=== PATIENT | female | born 1935 | race Caucasian/White ===

== ENCOUNTER → 2017-02-22 | Outpatient (CLI) | payer OTHER ==
[2017-02-22 11:04] LABS: HEMATOCRIT 31.3 % (37-47); MEAN CELL VOLUME 98.7 fL (80-100); MEAN CORPUSCULAR HEMOGLOBIN 30.9 pg (25-34); MEAN CORPUSCULAR HGB CONC 31.3 g/dl (32-36); MEAN PLATELET VOLUME 8.9 fL (7.4-10.4); PLATELET COUNT 278 K/uL (130-400); RED BLOOD COUNT 3.17 M/uL (4.2-5.4); WHITE BLOOD COUNT 5.09 K/uL (4.8-10.8)
[2017-02-22 11:11] LABS: BLOOD UREA NITROGEN 19 mg/dl (7-18); BUN/CREATININE RATIO 25.4 (10-20); CARBON DIOXIDE 27 mmol/L (21-32); CHLORIDE 107 mmol/L (98-107); CREATININE 0.75 mg/dl (0.60-1.20); GLUCOSE 80 mg/dl (70-99); POTASSIUM 3.7 mmol/L (3.5-5.1); SODIUM 141 mmol/L (136-145)
== END | disposition home or self-care (01) ==
LOC: C.LABWYN 10:51
PROVIDERS: ATTEND Internal Medicine
DX: R05 Cough (principal); R50.9 Fever, unspecified; J02.9 Acute pharyngitis, unspecified; E03.9 Hypothyroidism, unspecified; N30.20 Other chronic cystitis without hematuria

== ENCOUNTER → 2017-03-10 | Outpatient (CLI) | payer OTHER ==
[2017-03-10 08:16] LABS: HEMATOCRIT 31.7 % (37-47); MEAN CELL VOLUME 95.8 fL (80-100); MEAN CORPUSCULAR HEMOGLOBIN 31.1 pg (25-34); MEAN CORPUSCULAR HGB CONC 32.5 g/dl (32-36); MEAN PLATELET VOLUME 8.8 fL (7.4-10.4); PLATELET COUNT 269 K/uL (130-400); RED BLOOD COUNT 3.31 M/uL (4.2-5.4); WHITE BLOOD COUNT 5.45 K/uL (4.8-10.8)
== END | disposition home or self-care (01) ==
LOC: C.LABWYN 07:42
PROVIDERS: ATTEND Internal Medicine
DX: I10 Essential (primary) hypertension (principal)

== ENCOUNTER → 2017-03-29 | Outpatient (CLI) | payer OTHER | END | disposition home or self-care (01) | LOC: C.LABWYN 10:54 | PROVIDERS: ATTEND Internal Medicine | DX: N39.0 Urinary tract infection, site not specified (principal) ==

== ENCOUNTER → 2017-03-29 | Outpatient (CLI) | payer OTHER ==
[2017-03-29 08:31] LABS: BLOOD UREA NITROGEN 19 mg/dl (7-18); CALCIUM 8.9 mg/dl (8.5-10.1); CARBON DIOXIDE 29 mmol/L (21-32); CHLORIDE 107 mmol/L (98-107); CREATININE 0.66 mg/dl (0.60-1.20); GLUCOSE 85 mg/dl (70-99); SODIUM 141 mmol/L (136-145)
== END | disposition home or self-care (01) ==
LOC: C.LABWYN 08:08
PROVIDERS: ATTEND Internal Medicine
DX: E03.9 Hypothyroidism, unspecified (principal); N39.0 Urinary tract infection, site not specified

== ENCOUNTER → 2017-03-30 | Outpatient (CLI) | payer OTHER | END | disposition home or self-care (01) | LOC: C.LABWYN 16:43 | PROVIDERS: ATTEND Internal Medicine | DX: N39.0 Urinary tract infection, site not specified (principal) ==

== ENCOUNTER 2017-10-04 09:19 | Inpatient (IN) | payer OTHER ==
[2017-10-04] VITALS (7 sets, daily range): BP systolic 151–164; BP diastolic 65–68; PULSE 53–61; TEMP 34.7–36.4; O2SAT 98–99; BMI 23.8
[~2017-10-04] VITALS: Ht 167.6 cm; Wt 65.4 kg
[2017-10-04] MEDS ORDERED: SODIUM CHLORIDE 0.9% 1000ML 1,000 ML IV STA (09:32)
[2017-10-04] MEDS ORDERED: PRLSR20 PO (09:33)
[2017-10-04] MEDS ORDERED: SACC250C PO (09:33)
[2017-10-04] MEDS ORDERED: LEVO88TA PO (09:33)
[2017-10-04] MEDS ORDERED: DONE1TAB25 PO (09:33)
[2017-10-04] MEDS ORDERED: FERR1TAB62 PO (09:33)
[2017-10-04] MEDS ORDERED: TRAM-10 PO (09:33)
[2017-10-04] MEDS ORDERED: CHOL20009 PO (09:33)
[2017-10-04] MEDS ORDERED: RISP0.5T10 PO (09:33)
[2017-10-04] MEDS ORDERED: LSX20 PO (09:33)
[2017-10-04] MEDS ORDERED: MAGN400T6 PO (09:33)
--- NOTE | 2017-10-04 10:06 | EMERGENCY ROOM VISIT NOTE ---
History First contact with patient: 09:30 Chief Complaint: RECTAL BLEEDING Stated Complaint: BLEEDING (NON-TRAUMA) Nursing Triage Summary: pt here via bls from [facility] with rectal bleeding. pt states has had black stools since 0400. pt states some abd pains. pt has hx of colon cancer upon arrival pt has excoriated open area at top of buttocks and dime sized wound noted History of Present Illness The patient is a 82 year old female who presents to the Emergency Room with complaints of dark stools since this AM. Sent from [facility]. Pt states that she takes iron chronically and also that she has h/o hemorrhoids for which she has cream put on for her by staff from time to time. She is surprised that she was sent here, and isn't exactly sure why. She says her hemorrhoids are bothering her currently. She denies being on blood thinners of any kind. Denies abdominal pain, vomiting or nausea, says she is dizzy but that that is not new for her. [facility] Denies difficulty breathing or chest pain. Says her legs are swollen, but that this is also not new for her. Has incontinence. Spoke on the phone with Trini Carlin at [facility] [place], and she states the reason pt was brought in was because of confusion, dark stools, and urine was dark. Staff said there was a very strong odor around the patient "like something was " that is not normal for her. Visual hallucinations reported over the weekend. Pt normally resides in [place] but [place] here. brought her to [facility]. She has not taken her iron for a few days. Review of Systems ROS See HPI for pertinent positives and negatives. Past Medical/Surgical History Medical Problems: (1) Altered mental status Social History Smoking Status: Former Smoker Marital Status: Housing Status: [facility] Current/Historical Medications Scheduled Cholecalciferol (Vitamin D), 2,000 UNITS PO DAILY Donepezil Hydrochloride (Donepezil Hcl), 5 MG PO DAILY Ferrous Sulfate (Ferrous Sulfate), 325 MG PO DAILY Furosemide (Furosemide), 20 MG PO DAILY Levothyroxine Sodium (Synthroid), 88 MCG PO DAILY Magnesium Oxide (Mag-Ox), 800 MG PO BID Omeprazole (Prilosec), 20 MG PO DAILY Risperidone (Risperdal), 0.5 MG PO DAILY Saccharomyces Boulardii (Florastor), 250 MG PO BID Scheduled PRN Tramadol (Ultram), 50 MG PO Q6 PRN for Pain Physical Exam Vital Signs Date Time Temp Pulse Resp B/P (MAP) Pulse Ox O2 Delivery O2 Flow Rate FiO2 10/04/17 13:09 53 16 150/67 99 Room Air 10/04/17 12:32 55 16 163/66 100 Room Air 10/04/17 11:43 66 16 145/86 99 Room Air 10/04/17 11:17 55 10/04/17 10:18 61 16 144/76 96 Room Air 10/04/17 10:18 97 Room Air 10/04/17 09:31 36.5 64 16 138/52 98 Room Air Physical Exam GENERAL: Awake, oriented to self and place, in no distress HENT: Normocephalic, atraumatic. EYES: Normal conjunctiva. Sclera non-icteric. NECK: Supple. FROM. No JVD. RESPIRATORY: Clear to auscultation. CARDIAC: Regular rate, normal rhythm. Extremities warm and well perfused. Pulses equal. ABDOMEN: Soft, non-distended. No tenderness to palpation. No rebound or guarding. No masses. LOWER EXTREMITIES: Calves are equal size bilaterally and non-tender. 2+ edema. No discoloration. SACRAL: excoriated open area, dime sized wound noted proximal to intergluteal cleft with pinoint bleeding. NEURO: No motor deficits noted. Symmetrical weakness in all four extremities. Sensation in tact in all 4 ext. CN II-XII grossly in tact. PSYCH: Flat affect. Slow speech. SKIN: No rash or jaundice noted. Medical Decision & Procedures Laboratory Results 10/04/17 10:01 Red Blood Count 4.02, Mean Corpuscular Volume 98.0, Mean Corpuscular Hemoglobin 32.1, Mean Corpuscular Hemoglobin Concent 32.7, Mean Platelet Volume 8.7, Neutrophils (%) (Auto) 75.3, Lymphocytes (%) (Auto) 13.7, Monocytes (%) (Auto) 9.8, Eosinophils (%) (Auto) 0.6, Basophils (%) (Auto) 0.2, Neutrophils # (Auto) 3.90, Lymphocytes # (Auto) 0.71, Monocytes # (Auto) 0.51, Eosinophils # (Auto) 0.03, Basophils # (Auto) 0.01 10/04/17 10:01 Test 10/04/17 10:01 10/04/17 10:40 White Blood Count 5.18 K/uL (4.8-10.8) Red Blood Count 4.02 M/uL (4.2-5.4) Hemoglobin 12.9 g/dL (12.0-16.0) Hematocrit 39.4 % (37-47) Mean Corpuscular Volume 98.0 fL (80-100) Mean Corpuscular Hemoglobin 32.1 pg (25-34) Mean Corpuscular Hemoglobin Concent 32.7 g/dl (32-36) Platelet Count 250 K/uL (130-400) Mean Platelet Volume 8.7 fL (7.4-10.4) Neutrophils (%) (Auto) 75.3 % Lymphocytes (%) (Auto) 13.7 % Monocytes (%) (Auto) 9.8 % Eosinophils (%) (Auto) 0.6 % Basophils (%) (Auto) 0.2 % Neutrophils # (Auto) 3.90 K/uL (1.4-6.5) Lymphocytes # (Auto) 0.71 K/uL (1.2-3.4) Monocytes # (Auto) 0.51 K/uL (0.11-0.59) Eosinophils # (Auto) 0.03 K/uL (0-0.5) Basophils # (Auto) 0.01 K/uL (0-0.2) RDW Standard Deviation 50.5 fL (36.4-46.3) RDW Coefficient of Variation 14.1 % (11.5-14.5) Immature Granulocyte % (Auto) 0.4 % Immature Granulocyte # (Auto) 0.02 K/uL (0.00-0.02) Red Blood Cell Morphology Unremarkable Prothrombin Time 9.9 SECONDS (9.0-12.0) Prothromb Time International Ratio 0.9 (0.9-1.1) Activated Partial Thromboplast Time 25.9 SECONDS (21.0-31.0) Partial Thromboplastin Ratio 1.0 Anion Gap 5.0 mmol/L (3-11) Est Creatinine Clear Calc Drug Dose 52.7 ml/min Estimated GFR () 83.3 Estimated GFR (Non- 71.9 BUN/Creatinine Ratio 21.1 (10-20) Calcium Level 9.5 mg/dl (8.5-10.1) Total Bilirubin 0.7 mg/dl (0.2-1) Direct Bilirubin 0.1 mg/dl (0-0.2) Aspartate Amino Transf (AST/SGOT) 12 U/L (15-37) Alanine Aminotransferase (ALT/SGPT) 19 U/L (12-78) Alkaline Phosphatase 83 U/L (45-117) Total Protein 6.7 gm/dl (6.4-8.2) Albumin 3.1 gm/dl (3.4-5.0) Lipase 85 U/L (73-393) Urine Color YELLOW Urine Appearance TURBID (CLEAR) Urine pH 7.0 (4.5-7.5) Urine Specific [place] 1.017 (1.000-1.030) Urine Protein 2+ (NEG) Urine Glucose (UA) NEG (NEG) Urine Ketones NEG (NEG) Urine Occult Blood 1+ (NEG) Urine Nitrite POS (NEG) Urine Bilirubin NEG (NEG) Urine Urobilinogen NEG (NEG) Urine Leukocyte Esterase LARGE (NEG) Urine WBC (Auto) >30 /hpf (0-5) Urine RBC (Auto) 0-4 /hpf (0-4) Urine Hyaline Casts (Auto) 1-5 /lpf (0-5) Urine Epithelial Cells (Auto) 10-20 /lpf (0-5) Urine Bacteria (Auto) 4+ (NEG) Urine Yeast (Auto) (NONE PRSENT) Medications Administered Medications (Trade) Dose Ordered Sig/Nora Route Start Time Stop Time Status Last Admin Dose Admin Sodium Chloride 1,000 ml @ 999 mls/hr Q1H1M STAT IV 10/04/17 09:32 10/04/17 10:32 DC 10/04/17 10:30 999 MLS/HR Ceftriaxone Sodium (Rocephin Inj) 1 gm NOW STAT IV 10/04/17 11:21 10/04/17 11:24 DC 10/04/17 11:53 1 GM Procedure CHEST ONE VIEW PORTABLE CLINICAL HISTORY: EVALUATE GI BLEED COMPARISON STUDY: No previous studies for comparison. FINDINGS: Lung volumes are normal. There is no consolidation to suggest pneumonia. Pulmonary vascularity is normal. Linear left basilar opacity is suggestive of atelectasis. There is no evidence for pulmonary edema. There is mild rightward curvature of the lower thoracic spine. Cardiomediastinal silhouette is unremarkable. IMPRESSION: No acute cardiopulmonary findings. Electronically signed by: Josef Olivier M.D. 10/04/2017 10:22 AM Dictated Date/Time: 10/04/2017 10:22 AM ED Course 0930 reviewed records. Discussed with Trini Carlin at [facility] to discuss case. 0932 ordered labs, UA, CXR, hemoccult. 1039 Per nurse, hemocult is negative. CXR, labs reviewed, unremarkable. Awaiting urine collection. 1115 UA results + for large leuk est + nitrites. Medical Decision The patient is a 82 year old female who presents to the Emergency Room with complaints of dark stools since this AM. Sent from [facility]. Pt states that she takes iron chronically and also that she has h/o hemorrhoids for which she has cream put on for her by staff from time to time. She is surprised that she was sent here, and isn't exactly sure why. She says her hemorrhoids are bothering her currently. She denies being on blood thinners of any kind. Denies abdominal pain, vomiting or nausea, says she is dizzy but that that is not new for her. [facility]. Denies difficulty breathing or chest pain. Says her legs are swollen, but that this is also not new for her. Has incontinence. Spoke on the phone with Trini Carlin at [facility] [place], and she states the reason pt was brought in was because of confusion, dark stools, and urine was dark. Staff said there was a very strong odor around the patient "like something was " that is not normal for her. Visual hallucinations reported over the weekend. Pt normally resides in [place] but [place] here. brought her to [facility]. She has not taken her iron for a few days. Diff dx: UTI, GI bleed, diarrhea, dehydration, confusion CXR, CBC, CMP unremarkable and hemoccult negative. UA shows + large leuk est. Pt is still confused and case discussed with hospitalist service and decision made to admit due to active infection, UTI and altered mentation. Impression Primary Impression: Altered mental status Additional Impressions: UTI (urinary tract infection) Wound of sacral region Departure Information Dispostion Being Evaluated By Hospitalist Condition FAIR Referrals [facility] Y[facility]AN[facility] RIV[facility] (PCP) Patient Instructions My [facility] Resident Tracking Resident Involvement: Resident Care Provided Care Provided: Adult Hospital Medicine Problem Qualifiers
[2017-10-04 10:19] LABS: BASO % 0.2 %; BASO ABS # 0.01 K/uL (0-0.2); EOS % 0.6 %; EOS ABS # 0.03 K/uL (0-0.5); HEMATOCRIT 39.4 % (37-47); HEMOGLOBIN 12.9 g/dL (12.0-16.0); IG# 0.02 K/uL (0.00-0.02); LYMPH % 13.7 %; LYMPH ABS # 0.71 K/uL (1.2-3.4); MEAN CORPUSCULAR HEMOGLOBIN 32.1 pg (25-34); MEAN CORPUSCULAR HGB CONC 32.7 g/dl (32-36); MEAN PLATELET VOLUME 8.7 fL (7.4-10.4); MONO % 9.8 %; MONO ABS # 0.51 K/uL (0.11-0.59); NEUT % 75.3 %; PLATELET COUNT 250 K/uL (130-400); RED CELL DISTRIBUTION WIDTH CV 14.1 % (11.5-14.5); RED CELL DISTRIBUTION WIDTH SD 50.5 fL (36.4-46.3); WHITE BLOOD COUNT 5.18 K/uL (4.8-10.8)
--- NOTE | 2017-10-04 10:24 | DIAGNOSTIC IMAGING REPORT ---
CHEST ONE VIEW PORTABLE CLINICAL HISTORY: EVALUATE GI BLEED COMPARISON STUDY: No previous studies for comparison. FINDINGS: Lung volumes are normal. There is no consolidation to suggest pneumonia. Pulmonary vascularity is normal. Linear left basilar opacity is suggestive of atelectasis. There is no evidence for pulmonary edema. There is mild rightward curvature of the lower thoracic spine. Cardiomediastinal silhouette is unremarkable. IMPRESSION: No acute cardiopulmonary findings. Electronically signed by: Josef Olivier M.D. 10/04/2017 10:22 AM Dictated Date/Time: 10/04/2017 10:22 AM
[2017-10-04 10:28] LABS: INR 0.9 (0.9-1.1); PTT PATIENT 25.9 SECONDS (21.0-31.0)
[2017-10-04 10:42] LABS: ALBUMIN 3.1 gm/dl (3.4-5.0); CALCIUM 9.5 mg/dl (8.5-10.1); CREATININE 0.77 mg/dl (0.60-1.20); POTASSIUM 3.9 mmol/L (3.5-5.1)
[2017-10-04 10:45] LABS: TOTAL PROTEIN 6.7 gm/dl (6.4-8.2)
[2017-10-04] MEDS ORDERED: CEFTRIAXONE SOD INJ 1 GM ADDVIAL IV STA (11:21)
--- NOTE | 2017-10-04 11:33 | DIAGNOSTIC IMAGING REPORT ---
CT SCAN OF THE BRAIN WITHOUT IV CONTRAST CLINICAL HISTORY: Change in mental status. COMPARISON STUDY: No priors. TECHNIQUE: Unenhanced axial CT scan of the brain is performed from the vertex to the skull base. A dose lowering technique was utilized adhering to the principles of ALARA. CT DOSE: 788.63 mGycm FINDINGS: Brain parenchyma: There are age-related involutional changes noting minimal subcortical and periventricular microangiopathic change. There is no hemorrhage, mass effect, or evidence of acute territorial ischemia by CT criteria. Slightly asymmetric atrophy is suggested in the right cerebellar hemisphere. [place]-white matter is preserved. No extra-axial fluid collection is seen. Ventricles, sulci, cisterns: Prominent secondary to involutional change. Intracranial vasculature: There is atherosclerotic calcification of the cavernous carotid and vertebral arteries. Calvarium: Unremarkable. Sinuses and mastoids: The visualized paranasal sinuses are clear. The mastoid air cells are well pneumatized. Orbits: The bony orbits are grossly intact. IMPRESSION: There is no hemorrhage, mass effect, or evidence of acute territorial ischemia by CT criteria. Electronically signed by: Venkata Solorzano M.D. 10/04/2017 11:31 AM Dictated Date/Time: 10/04/2017 11:28 AM
[2017-10-04] MEDS ORDERED: ACETAMINOPHEN 325 MG TAB PO PRN (13:30)
[2017-10-04] MEDS ORDERED: ONDANSETRON INJ 2 MG/ML 2 ML VIAL IV PRN (13:30)
[2017-10-04] MEDS ORDERED: NYSTATIN POWDER 15GM BTL EXT PRN (13:30)
--- NOTE | 2017-10-04 13:35 | History and Physical ---
History & Physical Date & Time of Service: Oct 04, 2017 at 13:34 Chief Complaint: Bleeding (Non-Trauma) Primary Care Physician: Elisabet Vigil History of Present Illness Source: patient, hospital records, jail Patient is an 82 yr female with PMH of Hypothyroidism, GERD, Vit D deficiency, H /O colon cancer, mild cognitive impairment, vaginitis, protein Calorie malnutrition, failure to thrive as per records presents from [facility] with history of altered mental status and melena as per ER physician and Staff. Patient is a very poor historian and no family is available at bedside. Patient was unsure as to why she was brought to the hospital. Patient is on chronic Iron therapy and FOBT was negative (done in ED). She was also known to have h/o hemorrhoids. Patient reports productive cough since 3 days and non radiating pressure like sensation at suprapubic region associated with burning micturition. Also reports chronic leg swelling and dizziness which is unchanged. Denies any chest pain, SOB, diarrhea, fever, chills, fall, head trauma, LOC, headache. No other relevant history could be obtained. Patient was also noted to have visual hallucinations over the weekend at [facility] and takes Risperdal at home. Past Medical/Surgical History Medical Problems: (1) Altered mental status PMH of Hypothyroidism, GERD, Vit D deficiency, H/O colon cancer, mild cognitive impairment, vaginitis, protein Calorie malnutrition, failure to thrive PSH: could not be obtained Family History Could not be obtained as patient has altered mental status Social History Smoking Status: Former Smoker Alcohol Use: none Marital Status: Allergies Coded Allergies: No Known Allergies (Unverified , 10/04/17) Home Medications Scheduled Cholecalciferol (Vitamin D), 2,000 UNITS PO DAILY Donepezil Hydrochloride (Donepezil Hcl), 5 MG PO DAILY Ferrous Sulfate (Ferrous Sulfate), 325 MG PO DAILY Furosemide (Furosemide), 20 MG PO DAILY Levothyroxine Sodium (Synthroid), 88 MCG PO DAILY Magnesium Oxide (Mag-Ox), 800 MG PO BID Omeprazole (Prilosec), 20 MG PO DAILY Risperidone (Risperdal), 0.5 MG PO DAILY Saccharomyces Boulardii (Florastor), 250 MG PO BID Scheduled PRN Tramadol (Ultram), 50 MG PO Q6 PRN for Pain Review of Systems See HPI for pertinent positives & negatives. A total of 10 systems reviewed and were otherwise negative. Physical Exam Vital Signs Date Time Temp Pulse Resp B/P (MAP) Pulse Ox O2 Delivery O2 Flow Rate FiO2 10/04/17 13:09 53 16 150/67 99 Room Air 10/04/17 12:32 55 16 163/66 100 Room Air 10/04/17 11:43 66 16 145/86 99 Room Air 10/04/17 11:17 55 10/04/17 10:18 61 16 144/76 96 Room Air 10/04/17 10:18 97 Room Air 10/04/17 09:31 36.5 64 16 138/52 98 Room Air General Appearance: no apparent distress, + thin, + pertinent finding (Frail) Head: normocephalic, atraumatic Eyes: normal inspection, PERRL, EOMI, sclerae normal ENT: normal ENT inspection, hearing grossly normal Neck: supple, trachea midline Respiratory/Chest: chest non-tender, lungs clear, no respiratory distress, no accessory muscle use, + decreased breath sounds Cardiovascular: regular rate, rhythm, no murmur, + bradycardia, + pertinent finding (1+ b/l edema) Abdomen/GI: normal bowel sounds, non tender, soft Genitourinary - Female: + pertinent finding (+Vaginitis) Back: normal inspection, + pertinent finding (Sacral wound) Extremities/Musculoskelatal: normal inspection, + pedal edema 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, no motor/sensory deficits, alert, + pertinent finding (Grossly no focal deficits) Skin: normal color, + pertinent finding (Sacral wound) Diagnostics Laboratory Results Results Past 24 Hours Test 10/04/17 10:01 10/04/17 10:40 Range/Units White Blood Count 5.18 4.8-10.8 K/uL Red Blood Count 4.02 4.2-5.4 M/uL Hemoglobin 12.9 12.0-16.0 g/dL Hematocrit 39.4 37-47 % Mean Corpuscular Volume 98.0 80-100 fL Mean Corpuscular Hemoglobin 32.1 25-34 pg Mean Corpuscular Hemoglobin Concent 32.7 32-36 g/dl Platelet Count 250 130-400 K/uL Mean Platelet Volume 8.7 7.4-10.4 fL Neutrophils (%) (Auto) 75.3 % Lymphocytes (%) (Auto) 13.7 % Monocytes (%) (Auto) 9.8 % Eosinophils (%) (Auto) 0.6 % Basophils (%) (Auto) 0.2 % Neutrophils # (Auto) 3.90 1.4-6.5 K/uL Lymphocytes # (Auto) 0.71 1.2-3.4 K/uL Monocytes # (Auto) 0.51 0.11-0.59 K/uL Eosinophils # (Auto) 0.03 0-0.5 K/uL Basophils # (Auto) 0.01 0-0.2 K/uL RDW Standard Deviation 50.5 36.4-46.3 fL RDW Coefficient of Variation 14.1 11.5-14.5 % Immature Granulocyte % (Auto) 0.4 % Immature Granulocyte # (Auto) 0.02 0.00-0.02 K/uL Red Blood Cell Morphology Unremarkable Prothrombin Time 9.9 9.0-12.0 SECONDS Prothromb Time International Ratio 0.9 0.9-1.1 Activated Partial Thromboplast Time 25.9 21.0-31.0 SECONDS Partial Thromboplastin Ratio 1.0 Sodium Level 140 136-145 mmol/L Potassium Level 3.9 3.5-5.1 mmol/L Chloride Level 101 98-107 mmol/L Carbon Dioxide Level 34 21-32 mmol/L Anion Gap 5.0 3-11 mmol/L Blood Urea Nitrogen 16 7-18 mg/dl Creatinine 0.77 0.60-1.20 mg/dl Est Creatinine Clear Calc Drug Dose 52.7 ml/min Estimated GFR () 83.3 Estimated GFR (Non- 71.9 BUN/Creatinine Ratio 21.1 10-20 Random Glucose 87 70-99 mg/dl Calcium Level 9.5 8.5-10.1 mg/dl Total Bilirubin 0.7 0.2-1 mg/dl Direct Bilirubin 0.1 0-0.2 mg/dl Aspartate Amino Transf (AST/SGOT) 12 15-37 U/L Alanine Aminotransferase (ALT/SGPT) 19 12-78 U/L Alkaline Phosphatase 83 45-117 U/L Total Protein 6.7 6.4-8.2 gm/dl Albumin 3.1 3.4-5.0 gm/dl Lipase 85 73-393 U/L Urine Color YELLOW Urine Appearance TURBID CLEAR Urine pH 7.0 4.5-7.5 Urine Specific [place] 1.017 1.000-1.030 Urine Protein 2+ NEG Urine Glucose (UA) NEG NEG Urine Ketones NEG NEG Urine Occult Blood 1+ NEG Urine Nitrite POS NEG Urine Bilirubin NEG NEG Urine Urobilinogen NEG NEG Urine Leukocyte Esterase LARGE NEG Urine WBC (Auto) >30 0-5 /hpf Urine RBC (Auto) 0-4 0-4 /hpf Urine Hyaline Casts (Auto) 1-5 0-5 /lpf Urine Epithelial Cells (Auto) 10-20 0-5 /lpf Urine Bacteria (Auto) 4+ NEG Urine Yeast (Auto) NONE PRSENT Microbiology Results 10/04/17 Urine Culture, Received Pending Diagnostic Radiology CT head: There is no hemorrhage, mass effect, or evidence of acute territorial ischemia by CT criteria. CXR: No acute cardiopulmonary findings. EKG EKG: Sinus Bradycardia Impression Assessment and Plan Altered Mental Status:In setting of H/O Mild Cognitive Impairment Likely Metabolic Encephalopathy secondary to UTI CT head: no acute process Neuro checks UTI: H/O incontinence Start IV Ceftriaxone Urine culture No signs of sepsis IV fluids H/O Melena: In setting of chronic Iron therapy and H/O hemorrhoids Hb at baseline No active bleeding FOBT negative Monitor HB Transfuse PRBCs as need and consider GI if necessary Sinus Bradycardia: Not on any AV blocking agents monitor Hypothyroidism: check TSH, Free T4 continue levothyroxine GERD: continue PPI Vit D deficiency: continue supplements Chronic anemia: Likely Multifactorial: Iron deficiency, Anemia of chronic disease H/O colon cancer as per records Decubitus Ulcer: Wound care consulted H/O mild cognitive impairment Anxiety: Continue Risperdal H/O Protein Calorie malnutrition failure to thrive: BMI: 23.9 Chemical Lab Supervisor consulted DVT Px: Lovenox SQ Code Status: Full Code for now May need to readdress code status when family available Resuscitation Status VTE Prophylaxis Will order VTE Prophylaxis: Yes
--- NOTE | 2017-10-04 15:12 | EMERGENCY ROOM VISIT NOTE ---
History Report prepared by Rosie: Jeanne Pop Under the Supervision of: Dr. Guilherme Young D.O. First contact with patient: 09:30 Chief Complaint: RECTAL BLEEDING Stated Complaint: BLEEDING (NON-TRAUMA) Nursing Triage Summary: pt here via bls from [facility] with rectal bleeding. pt states has had black stools since 0400. pt states some abd pains. pt has hx of colon cancer upon arrival pt has excoriated open area at top of buttocks and dime sized wound noted History of Present Illness The patient is a 82 year old female who presents to the Emergency Room with complaints of rectal bleeding beginning this morning at 4 am. The patient comes from [facility]. The patient reports abdominal pain which is chronic for her. The patient does not take any blood thinners. Per nursing staff , the patient was sent into the ED for confusion as well as rectal bleeding. The patient is on iron. Per , the patient has been passing dark stools. Per , at baseline, the patient is not always aware of the year. He reports he has not seen the patient for 4 days. The patient and her recently traveled to [place] from [place]. The patient has a history of hemorrhoids. History is limited secondary to the patient's AMS. Source of History: patient History Limited By: AMS Onset: 4 am Position: other (rectal) Quality: other (bleeding) Timing: constant Associated Symptoms: + abdominal pain Review of Systems ROS limited secondary to AMS. Past Medical & Surgical Medical Problems: (1) Altered mental status Family History Patient reports no known family medical history. Social History Smoking Status: Former Smoker Alcohol Use: none Drug Use: none Marital Status: Housing Status: penitentiary Occupation Status: retired Current/Historical Medications Scheduled Cholecalciferol (Vitamin D), 2,000 UNITS PO DAILY Donepezil Hydrochloride (Donepezil Hcl), 5 MG PO DAILY Ferrous Sulfate (Ferrous Sulfate), 325 MG PO DAILY Furosemide (Furosemide), 20 MG PO DAILY Levothyroxine Sodium (Synthroid), 88 MCG PO DAILY Magnesium Oxide (Mag-Ox), 800 MG PO BID Omeprazole (Prilosec), 20 MG PO DAILY Risperidone (Risperdal), 0.5 MG PO DAILY Saccharomyces Boulardii (Florastor), 250 MG PO BID Scheduled PRN Tramadol (Ultram), 50 MG PO Q6 PRN for Pain Allergies Coded Allergies: No Known Allergies (Unverified , 10/04/17) Physical Exam Vital Signs Date Time Temp Pulse Resp B/P (MAP) Pulse Ox O2 Delivery O2 Flow Rate FiO2 10/04/17 14:06 55 16 160/70 100 Room Air 10/04/17 13:30 99 Room Air 10/04/17 13:09 53 16 150/67 99 Room Air 10/04/17 12:32 55 16 163/66 100 Room Air 10/04/17 11:43 66 16 145/86 99 Room Air 10/04/17 11:17 55 10/04/17 10:18 61 16 144/76 96 Room Air 10/04/17 10:18 97 Room Air 10/04/17 09:31 36.5 64 16 138/52 98 Room Air Physical Exam GENERAL: Sitting up in bed, alert, disheveled and confused appearing, well nourished, no distress, non-toxic EYE EXAM: normal conjunctiva. OROPHARYNX: no exudate, no erythema, lips, buccal mucosa, and tongue normal and mucous membranes are moist NECK: supple, no nuchal rigidity, no adenopathy, non-tender LUNGS: Clear to auscultation. Normal chest wall mechanics HEART: no murmurs, S1 normal and S2 normal ABDOMEN: abdomen soft, non-tender, normo-active bowel sounds, no masses, no rebound or guarding. BACK: Back is symmetrical on inspection and there is no deformity, no midline tenderness, no CVA tenderness. SKIN: no rashes and no bruising UPPER EXTREMITIES: upper extremities are grossly normal. LOWER EXTREMITIES: No pitting edema. NEURO EXAM: Awake and alert, oriented to name but not oriented to place or time , no focal deficits. RECTAL: Heme negative stool. Small ulcer at base of coccyx with small amount of bleeding on palpation. Medical Decision & Procedures ER Provider Diagnostic Interpretation: Radiology results as stated below per my review and the radiologist's interpretation: CT SCAN OF THE BRAIN WITHOUT IV CONTRAST FINDINGS: Brain parenchyma: There are age-related involutional changes noting minimal subcortical and periventricular microangiopathic change. There is no hemorrhage, mass effect, or evidence of acute territorial ischemia by CT criteria. Slightly asymmetric atrophy is suggested in the right cerebellar hemisphere. Norton-white matter is preserved. No extra-axial fluid collection is seen. Ventricles, sulci, cisterns: Prominent secondary to involutional change. Intracranial vasculature: There is atherosclerotic calcification of the cavernous carotid and vertebral arteries. Calvarium: Unremarkable. Sinuses and mastoids: The visualized paranasal sinuses are clear. The mastoid air cells are well pneumatized. Orbits: The bony orbits are grossly intact. IMPRESSION: There is no hemorrhage, mass effect, or evidence of acute territorial ischemia by CT criteria. Electronically signed by: Venkata Solorzano M.D. CHEST ONE VIEW PORTABLE FINDINGS: Lung volumes are normal. There is no consolidation to suggest pneumonia. Pulmonary vascularity is normal. Linear left basilar opacity is suggestive of atelectasis. There is no evidence for pulmonary edema. There is mild rightward curvature of the lower thoracic spine. Cardiomediastinal silhouette is unremarkable. IMPRESSION: No acute cardiopulmonary findings. Electronically signed by: Josef Olivier M.D. Laboratory Results 10/04/17 10:01 Red Blood Count 4.02, Mean Corpuscular Volume 98.0, Mean Corpuscular Hemoglobin 32.1, Mean Corpuscular Hemoglobin Concent 32.7, Mean Platelet Volume 8.7, Neutrophils (%) (Auto) 75.3, Lymphocytes (%) (Auto) 13.7, Monocytes (%) (Auto) 9.8, Eosinophils (%) (Auto) 0.6, Basophils (%) (Auto) 0.2, Neutrophils # (Auto) 3.90, Lymphocytes # (Auto) 0.71, Monocytes # (Auto) 0.51, Eosinophils # (Auto) 0.03, Basophils # (Auto) 0.01 10/04/17 10:01 Test 10/04/17 10:01 10/04/17 10:40 White Blood Count 5.18 K/uL (4.8-10.8) Red Blood Count 4.02 M/uL (4.2-5.4) Hemoglobin 12.9 g/dL (12.0-16.0) Hematocrit 39.4 % (37-47) Mean Corpuscular Volume 98.0 fL (80-100) Mean Corpuscular Hemoglobin 32.1 pg (25-34) Mean Corpuscular Hemoglobin Concent 32.7 g/dl (32-36) Platelet Count 250 K/uL (130-400) Mean Platelet Volume 8.7 fL (7.4-10.4) Neutrophils (%) (Auto) 75.3 % Lymphocytes (%) (Auto) 13.7 % Monocytes (%) (Auto) 9.8 % Eosinophils (%) (Auto) 0.6 % Basophils (%) (Auto) 0.2 % Neutrophils # (Auto) 3.90 K/uL (1.4-6.5) Lymphocytes # (Auto) 0.71 K/uL (1.2-3.4) Monocytes # (Auto) 0.51 K/uL (0.11-0.59) Eosinophils # (Auto) 0.03 K/uL (0-0.5) Basophils # (Auto) 0.01 K/uL (0-0.2) RDW Standard Deviation 50.5 fL (36.4-46.3) RDW Coefficient of Variation 14.1 % (11.5-14.5) Immature Granulocyte % (Auto) 0.4 % Immature Granulocyte # (Auto) 0.02 K/uL (0.00-0.02) Red Blood Cell Morphology Unremarkable Prothrombin Time 9.9 SECONDS (9.0-12.0) Prothromb Time International Ratio 0.9 (0.9-1.1) Activated Partial Thromboplast Time 25.9 SECONDS (21.0-31.0) Partial Thromboplastin Ratio 1.0 Anion Gap 5.0 mmol/L (3-11) Est Creatinine Clear Calc Drug Dose 52.7 ml/min Estimated GFR () 83.3 Estimated GFR (Non- 71.9 BUN/Creatinine Ratio 21.1 (10-20) Calcium Level 9.5 mg/dl (8.5-10.1) Total Bilirubin 0.7 mg/dl (0.2-1) Direct Bilirubin 0.1 mg/dl (0-0.2) Aspartate Amino Transf (AST/SGOT) 12 U/L (15-37) Alanine Aminotransferase (ALT/SGPT) 19 U/L (12-78) Alkaline Phosphatase 83 U/L (45-117) Total Protein 6.7 gm/dl (6.4-8.2) Albumin 3.1 gm/dl (3.4-5.0) Lipase 85 U/L (73-393) Urine Color YELLOW Urine Appearance TURBID (CLEAR) Urine pH 7.0 (4.5-7.5) Urine Specific [place] 1.017 (1.000-1.030) Urine Protein 2+ (NEG) Urine Glucose (UA) NEG (NEG) Urine Ketones NEG (NEG) Urine Occult Blood 1+ (NEG) Urine Nitrite POS (NEG) Urine Bilirubin NEG (NEG) Urine Urobilinogen NEG (NEG) Urine Leukocyte Esterase LARGE (NEG) Urine WBC (Auto) >30 /hpf (0-5) Urine RBC (Auto) 0-4 /hpf (0-4) Urine Hyaline Casts (Auto) 1-5 /lpf (0-5) Urine Epithelial Cells (Auto) 10-20 /lpf (0-5) Urine Bacteria (Auto) 4+ (NEG) Urine Yeast (Auto) (NONE PRSENT) Laboratory results per my review. Medications Administered Medications (Trade) Dose Ordered Sig/Nora Route Start Time Stop Time Status Last Admin Dose Admin Sodium Chloride 1,000 ml @ 999 mls/hr Q1H1M STAT IV 10/04/17 09:32 10/04/17 10:32 DC 10/04/17 10:30 999 MLS/HR Ceftriaxone Sodium (Rocephin Inj) 1 gm NOW STAT IV 10/04/17 11:21 10/04/17 11:24 DC 10/04/17 11:53 1 GM ECG Per My Interpretation Indication: altered mental status Rate (beats per minute): 58 Rhythm: sinus bradycardia Findings: left axis deviation, other (poor baseline, no PVC) ED Course ED COURSE: Vital signs were reviewed and showed normal The patients medical record was reviewed The above diagnostic studies were performed and reviewed. ED treatments and interventions as stated above. 0932: Ordered Sodium Chloride 1000 ml @ 999 mls/hr IV. 1019: The patient was evaluated in room B12B. A complete history and physical examination was performed. 1121: Ordered Rocephin Inj 1 gm IV. 1201: Conversation with [facility] staff. They report the patient was sent to the ED for AMS and confusion. The staff report the patient is normally active and oriented to person, place, and time. 1222: I reviewed the patient's case with Dr. Hernandez. He will evaluate the patient for further management. 1236: Upon reevaluation, the patient is resting comfortably.I discussed my findings with the patient and she understands and agrees with the treatment plan. Based on the patients age, coexisting illnesses, exam and lab findings the decision to treat as an inpatient was made. The patient remained stable while under my care. The patient will be evaluated for further management. Medical Decision Differential diagnoses includes but is not limited to toxic, metabolic, infectious, traumatic, cardiac, neurologic, hematologic, psychiatric and inflammatory etiologies. Patient is an 82-year-old female [facility] for altered mental status associated with a possible GI bleed. Upon presentation she does have dark tarry stools on iron. Heme negative. She has a small ulcer at the base of the coccyx which does have a little bit of venous oozing. She is confused on exam. CBC along with BMP, LFTs, bilirubin lipase is normal. UA shows a clear UTI. Patient was given IV antibiotics. She is given fluids. Discussed with and penitentiary. Due to her confusion will admit. Medication Reconcilliation Current Medication List: was personally reviewed by me Blood Pressure Screening Patient's blood pressure: Normal blood pressure Consults Time Called: 1210 Consulting Physician: Dr. Hernandez Returned Call: 1222 I reviewed the patient's case with Dr. Hernandez. He will evaluate the patient for further management. Impression Primary Impression: Altered mental status Additional Impressions: UTI (urinary tract infection) Wound of sacral region Scribe Attestation The scribe's documentation has been prepared under my direction and personally reviewed by me in its entirety. I confirm that the note above accurately reflects all work, treatment, procedures, and medical decision making performed by me. Departure Information Dispostion Being Evaluated By Hospitalist Referrals GABRIELAGREEN BAY EVA RIVAS (PCP) Patient Instructions My [facility] Health Problem Qualifiers Primary Impression: Altered mental status Altered mental status type: unspecified Qualified Codes: R41.82 - Altered mental status, unspecified Additional Impressions: UTI (urinary tract infection) Urinary tract infection type: acute cystitis Hematuria presence: with hematuria Qualified Codes: N30.01 - Acute cystitis with hematuria Wound of sacral region Encounter type: initial encounter Qualified Codes: S31.000A - Unspecified open wound of lower back and pelvis without penetration into retroperitoneum, initial encounter
[2017-10-04] MEDS ORDERED: SODIUM CHLORIDE 0.9% 1000ML 500 ML IV ONE (15:45)
[2017-10-04] MEDS ORDERED: INFLUENZA ADMINISTRATION CHARGE ONE (16:00)
[2017-10-04] MEDS ORDERED: INFLUENZA VACCINE HIGH DOSE 65+ 0.5 ML SYR IM. ONE (16:00)
[2017-10-04 20:16] LABS: HEMOGLOBIN 12.4 g/dL (12.0-16.0)
[2017-10-04] MEDS: ENOXAPARIN 30 MG/0.3 ML SYR SC SCH (21:51)
[2017-10-04] MEDS: SACCHAROMYCES BOUL (FLORASTOR) 250 MG CAP PO SCH (21:59)
[2017-10-04] MEDS: MAGNESIUM OXIDE 400 MG TAB PO SCH (21:59)
[2017-10-05] VITALS (9 sets, daily range): BP systolic 118–174; BP diastolic 65–93; PULSE 54–77; TEMP 36.3–36.4; O2SAT 94–99; Ht 167.6 cm; Wt 65.4 kg
[2017-10-05] MEDS ORDERED: LEVOTHYROXINE 88 MCG TAB PO SCH (06:00)
[2017-10-05 06:24] LABS: HEMATOCRIT 37.6 % (37-47); HEMOGLOBIN 12.4 g/dL (12.0-16.0); MEAN CELL VOLUME 98.2 fL (80-100); MEAN CORPUSCULAR HEMOGLOBIN 32.4 pg (25-34); MEAN PLATELET VOLUME 9.6 fL (7.4-10.4); PLATELET COUNT 133 K/uL (130-400); RED CELL DISTRIBUTION WIDTH CV 14.1 % (11.5-14.5); RED CELL DISTRIBUTION WIDTH SD 50.2 fL (36.4-46.3); WHITE BLOOD COUNT 3.67 K/uL (4.8-10.8)
[2017-10-05 07:08] LABS: CALCIUM 8.7 mg/dl (8.5-10.1); CREATININE 0.79 mg/dl (0.60-1.20)
--- NOTE | 2017-10-05 07:29 | Clinical Documentation Query ---
TIANNA Leung : CLINICAL DOCUMENTATION QUERY Patient is an 82 year old female admitted for evaluation and treatment of encephalopathy in the setting of a UTI. Documentation includes "decubitus ulcer", and notes wound care consultation. Physical assessment documentation includes "sacral wound", not otherwise specified. Please specify the etiology and severity as able as this cannot be assumed by the professional [employer] planners. Thank you. In your clinical opinion is this patient being managed for: ( X ) Pressure ulcer of sacral region, unknown stage ( ) Not Agree ( ) Other explanation of clinical findings (Please Explain) ( ) Unable to determine (Please Define) ( ) Need to Discuss The medical record reflects the following clinical findings, treatment, and risk factors. Clinical Indicators: As above Treatment: WOCN consultation Risk Factors: Age, immobility, ?nutritional status Please clarify and document your clinical opinion in the progress notes and discharge summary. Terms such as "probable", "suspected", "likely", "questionable", "possible", or "still to be ruled out" are acceptable. IF IN AGREEMENT, YOU MUST DOCUMENT ABOVE DIAGNOSTIC STATEMENT IN DAILY PROGRESS NOTES AND DISCHARGE SUMMARY. This document is not part of the patient's record. Thank You, Omero Hurd, RN [phone]
[2017-10-05] MEDS: DONEPEZIL HCL 5 MG TAB PO SCH (07:54)
[2017-10-05] MEDS: PANTOprazole SOD 40 MG TAB PO SCH (07:55)
[2017-10-05] MEDS: MAGNESIUM OXIDE 400 MG TAB PO SCH ×2 (07:55→20:00)
[2017-10-05] MEDS: FUROSEMIDE 20 MG TAB PO SCH (07:55)
[2017-10-05] MEDS: FERROUS SULFATE 325 MG TAB PO SCH (07:55)
[2017-10-05] MEDS: SACCHAROMYCES BOUL (FLORASTOR) 250 MG CAP PO SCH ×2 (07:55→20:00)
[2017-10-05] MEDS: RISPERIDONE 0.5 MG TAB PO SCH (07:56)
[2017-10-05] MEDS: CHOLECALCIFEROL 1000 INTER.UNIT TAB PO SCH (07:56)
[2017-10-05 08:31] LABS: POTASSIUM 3.9 mmol/L (3.5-5.1)
[2017-10-05] MEDS ORDERED: CEFTRIAXONE SOD INJ 1 GM in DEXTROSE 5% ADD-VANTAGE 50ML 50 ML IV SCH (09:00)
[2017-10-05] MEDS ORDERED: LEVOTHYROXINE 100 MCG TAB PO ONE (09:15)
[2017-10-05] MEDS ORDERED: FLUCONAZOLE 50 MG TAB PO ONE (09:15)
--- NOTE | 2017-10-05 09:18 | Progress Note ---
Subjective Date of Service: Oct 05, 2017. Subjective Pt evaluation today including: conversation w/ patient, physical exam, lab review, review of studies, review of inpatient medication list Saw/examined the patient in room 210 Pleasantly demented Laying in bed, in no distress No problems/issues to note at this time Problem List Medical Problems: (1) UTI (urinary tract infection) Status: Acute (2) Wound of sacral region Status: Acute Medications Current Inpatient Medications Medications (Trade) Dose Ordered Sig/Nora Route Start Time Stop Time Status Last Admin Dose Admin Enoxaparin Sodium (Lovenox Inj) 30 mg Q24H SC 10/04/17 20:00 11/03/17 19:59 10/04/17 21:51 30 MG Acetaminophen (Tylenol Tab) 650 mg Q4H PRN PO 10/04/17 13:30 11/03/17 13:29 Ondansetron HCl (Zofran Inj) 4 mg Q6H PRN IV 10/04/17 13:30 11/03/17 13:29 Ceftriaxone Sodium 1 gm/ Dextrose 50 ml @ 100 mls/hr Q24H IV 10/05/17 09:00 10/10/17 08:59 10/05/17 07:54 100 MLS/HR Nystatin (Mycostatin Powder) 1 appln BID PRN EXT 10/04/17 13:30 11/03/17 13:29 Furosemide (Lasix Tab) 20 mg DAILY PO 10/05/17 09:00 11/04/17 08:59 10/05/17 07:55 20 MG Magnesium Oxide (Mag-Ox Tab) 800 mg BID PO 10/04/17 21:00 11/03/17 20:59 10/05/17 07:55 800 MG Risperidone (Risperdal Tab) 0.5 mg DAILY PO 10/05/17 09:00 11/04/17 08:59 10/05/17 07:56 0.5 MG Saccharomyces Boulardii (Florastor Cap) 250 mg BID PO 10/04/17 21:00 11/03/17 20:59 10/05/17 07:55 250 MG Cholecalciferol (Vitamin D Tab) 2,000 inter.unit DAILY PO 10/05/17 09:00 11/04/17 08:59 10/05/17 07:56 2,000 INTER.UNIT Donepezil HCl (Aricept Tab) 5 mg DAILY PO 10/05/17 09:00 11/04/17 08:59 10/05/17 07:54 5 MG Ferrous Sulfate (Feosol Tab) 325 mg DAILY PO 10/05/17 09:00 11/04/17 08:59 10/05/17 07:55 325 MG Pantoprazole Sodium (Protonix Tab) 40 mg DAILY PO 10/05/17 09:00 11/04/17 08:59 10/05/17 07:55 40 MG Levothyroxine Sodium (Synthroid Tab) 100 mcg DAILYBB PO 10/06/17 06:00 11/05/17 05:59 UNV Objective Vital Signs Date Time Temp Pulse Resp B/P (MAP) Pulse Ox O2 Delivery O2 Flow Rate FiO2 10/05/17 08:00 Room Air 10/05/17 07:46 36.3 60 16 152/65 (94) 96 Room Air 10/05/17 04:00 Room Air 10/05/17 03:52 36.4 54 16 118/65 (82) 97 Room Air 10/05/17 00:05 36.4 75 18 143/87 (105) 97 Room Air 10/04/17 23:59 Room Air 10/04/17 20:04 36.4 61 20 151/68 (95) 98 Room Air 10/04/17 20:00 Room Air 10/04/17 18:27 36.3 10/04/17 17:47 35.4 10/04/17 16:55 35.0 10/04/17 16:25 34.9 10/04/17 15:45 34.7 53 16 164/65 (98) 98 Room Air 10/04/17 14:06 55 16 160/70 100 Room Air 10/04/17 13:30 99 Room Air 10/04/17 13:09 53 16 150/67 99 Room Air 10/04/17 12:32 55 16 163/66 100 Room Air 10/04/17 11:43 66 16 145/86 99 Room Air 10/04/17 11:17 55 10/04/17 10:18 61 16 144/76 96 Room Air 10/04/17 10:18 97 Room Air 10/04/17 09:31 36.5 64 16 138/52 98 Room Air Physical Exam General Appearance: no apparent distress Respiratory/Chest: no respiratory distress, no accessory muscle use Cardiovascular: regular rate, rhythm, no edema, no murmur Extremities: normal inspection, no pedal edema Neurologic/Psychiatric: alert, + disoriented, + pertinent finding (pleasantly demented) Laboratory Results Last 24 Hours Test 10/04/17 10:01 10/04/17 10:40 10/04/17 20:02 10/05/17 05:52 White Blood Count 5.18 K/uL 3.67 K/uL Red Blood Count 4.02 M/uL 3.83 M/uL Hemoglobin 12.9 g/dL 12.4 g/dL 12.4 g/dL Hematocrit 39.4 % 37.0 % 37.6 % Mean Corpuscular Volume 98.0 fL 98.2 fL Mean Corpuscular Hemoglobin 32.1 pg 32.4 pg Mean Corpuscular Hemoglobin Concent 32.7 g/dl 33.0 g/dl Platelet Count 250 K/uL 133 K/uL Mean Platelet Volume 8.7 fL 9.6 fL Neutrophils (%) (Auto) 75.3 % Lymphocytes (%) (Auto) 13.7 % Monocytes (%) (Auto) 9.8 % Eosinophils (%) (Auto) 0.6 % Basophils (%) (Auto) 0.2 % Neutrophils # (Auto) 3.90 K/uL Lymphocytes # (Auto) 0.71 K/uL Monocytes # (Auto) 0.51 K/uL Eosinophils # (Auto) 0.03 K/uL Basophils # (Auto) 0.01 K/uL RDW Standard Deviation 50.5 fL 50.2 fL RDW Coefficient of Variation 14.1 % 14.1 % Immature Granulocyte % (Auto) 0.4 % Immature Granulocyte # (Auto) 0.02 K/uL Red Blood Cell Morphology Unremarkable Prothrombin Time 9.9 SECONDS Prothromb Time International Ratio 0.9 Activated Partial Thromboplast Time 25.9 SECONDS Partial Thromboplastin Ratio 1.0 Sodium Level 140 mmol/L 141 mmol/L Potassium Level 3.9 mmol/L mmol/L Chloride Level 101 mmol/L 106 mmol/L Carbon Dioxide Level 34 mmol/L 30 mmol/L Anion Gap 5.0 mmol/L 5.0 mmol/L Blood Urea Nitrogen 16 mg/dl 12 mg/dl Creatinine 0.77 mg/dl 0.79 mg/dl Est Creatinine Clear Calc Drug Dose 52.7 ml/min 51.4 ml/min Estimated GFR () 83.3 80.8 Estimated GFR (Non- 71.9 69.7 BUN/Creatinine Ratio 21.1 15.5 Random Glucose 87 mg/dl 71 mg/dl Calcium Level 9.5 mg/dl 8.7 mg/dl Total Bilirubin 0.7 mg/dl Direct Bilirubin 0.1 mg/dl Aspartate Amino Transf (AST/SGOT) 12 U/L Alanine Aminotransferase (ALT/SGPT) 19 U/L Alkaline Phosphatase 83 U/L Total Protein 6.7 gm/dl Albumin 3.1 gm/dl Lipase 85 U/L Urine Color YELLOW Urine Appearance TURBID Urine pH 7.0 Urine Specific [place] 1.017 Urine Protein 2+ Urine Glucose (UA) NEG Urine Ketones NEG Urine Occult Blood 1+ Urine Nitrite POS Urine Bilirubin NEG Urine Urobilinogen NEG Urine Leukocyte Esterase LARGE Urine WBC (Auto) >30 /hpf Urine RBC (Auto) 0-4 /hpf Urine Hyaline Casts (Auto) 1-5 /lpf Urine Epithelial Cells (Auto) 10-20 /lpf Urine Bacteria (Auto) 4+ Urine Yeast (Auto) Magnesium Level mg/dl Thyroid Stimulating Hormone (TSH) 36.400 uIu/ml Free Thyroxine 1.00 ng/dl Test 10/05/17 08:02 Potassium Level 3.9 mmol/L Magnesium Level 2.3 mg/dl Assessment and Plan This is an 82 year old female with a PMH of advanced dementia, hypothyroidism, chronic urine incontinence, hx. of vaginitis - presents from [facility] with altered mental status and possible melena and subsequently found to have urinary tract infection Metabolic Encephalopathy secondary to UTI - gram negative bacilli thus far on cultures - started on Rocephin, which we can continue until cultures return - patient's mental status appears to be baseline dementia - temp is now closer to normal; can transfer to med/surg - likely d/c back to [facility] on 10/06 Hx. of Vaginitis - will add one dose of Diflucan 150mg x1 Advanced Dementia - continue Donepezil Hypothyroidism - TSH > 30 - patient with bradycardia, hypothermia on admission - will increase Synthroid from 88mcg to 100mcg - close outpatient TSH follow-up in 4 weeks Sacral Decubitus Ulcer - wound care consulted GERD - continue PPI DVT ppx - Lovenox FULL CODE
[2017-10-05] MEDS: RASPBERRY SYRUP 5 ML UDP PO SCH ×3 (12:25→20:00)
[2017-10-05] MEDS: VANCOMYCIN HCL 125 MG/2.5ML SOLN PO SCH ×3 (12:26→20:00)
[2017-10-05] MEDS: BOOST VANILLA PO SCH (17:00)
[2017-10-05] MEDS: ENOXAPARIN 30 MG/0.3 ML SYR SC SCH (20:00)
[2017-10-05] MEDS ORDERED: CIPROFLOXACIN 500 MG TAB PO SCH (20:00)
[2017-10-06] VITALS: O2SAT 98
[2017-10-06] MEDS: LEVOTHYROXINE 100 MCG TAB PO SCH (06:30)
[2017-10-06 06:51] LABS: HEMATOCRIT 37.4 % (37-47); HEMOGLOBIN 12.1 g/dL (12.0-16.0); MEAN CELL VOLUME 97.9 fL (80-100); MEAN CORPUSCULAR HEMOGLOBIN 31.7 pg (25-34); MEAN CORPUSCULAR HGB CONC 32.4 g/dl (32-36); MEAN PLATELET VOLUME 8.8 fL (7.4-10.4); PLATELET COUNT 213 K/uL (130-400); WHITE BLOOD COUNT 4.31 K/uL (4.8-10.8)
[2017-10-06 07:19] LABS: CREATININE 0.92 mg/dl (0.60-1.20)
[2017-10-06 07:20] LABS: CALCIUM 8.8 mg/dl (8.5-10.1); POTASSIUM 3.5 mmol/L (3.5-5.1)
[2017-10-06 07:35] VITALS: BP 155/80; PULSE 57; TEMP 36.2; O2SAT 98
[2017-10-06] MEDS: VANCOMYCIN HCL 125 MG/2.5ML SOLN PO SCH ×4 (08:00→20:01)
[2017-10-06] MEDS: BOOST VANILLA PO SCH ×2 (08:00→17:04)
[2017-10-06] MEDS: RISPERIDONE 0.5 MG TAB PO SCH (09:19)
[2017-10-06] MEDS: CHOLECALCIFEROL 1000 INTER.UNIT TAB PO SCH (09:19)
[2017-10-06] MEDS: PANTOprazole SOD 40 MG TAB PO SCH (09:19)
[2017-10-06] MEDS: FUROSEMIDE 20 MG TAB PO SCH (09:19)
[2017-10-06] MEDS: FERROUS SULFATE 325 MG TAB PO SCH (09:20)
[2017-10-06] MEDS: DONEPEZIL HCL 5 MG TAB PO SCH (09:20)
[2017-10-06] MEDS: SACCHAROMYCES BOUL (FLORASTOR) 250 MG CAP PO SCH ×2 (09:20→20:03)
[2017-10-06] MEDS: CEPHALEXIN MONOHYDRATE 500 MG CAP PO SCH ×2 (09:20→20:16)
[2017-10-06] MEDS: MAGNESIUM OXIDE 400 MG TAB PO SCH ×2 (09:21→20:16)
[2017-10-06] MEDS: RASPBERRY SYRUP 5 ML UDP PO SCH ×4 (09:21→20:01)
--- NOTE | 2017-10-06 14:48 | Progress Note ---
Subjective Date of Service: Oct 06, 2017. Subjective Pt evaluation today including: conversation w/ patient, physical exam, lab review, review of studies, review of inpatient medication list Saw/examined the patient in room 418 She is still pleasantly confused, but clearing up slightly Eager to go home Did eat all of her lunch Problem List Medical Problems: (1) UTI (urinary tract infection) Status: Acute (2) Wound of sacral region Status: Acute Medications Current Inpatient Medications Medications (Trade) Dose Ordered Sig/Nora Route Start Time Stop Time Status Last Admin Dose Admin Enoxaparin Sodium (Lovenox Inj) 30 mg Q24H SC 10/04/17 20:00 11/03/17 19:59 10/05/17 20:00 30 MG Acetaminophen (Tylenol Tab) 650 mg Q4H PRN PO 10/04/17 13:30 11/03/17 13:29 10/06/17 12:18 650 MG Ondansetron HCl (Zofran Inj) 4 mg Q6H PRN IV 10/04/17 13:30 11/03/17 13:29 Nystatin (Mycostatin Powder) 1 appln BID PRN EXT 10/04/17 13:30 11/03/17 13:29 Furosemide (Lasix Tab) 20 mg DAILY PO 10/05/17 09:00 11/04/17 08:59 10/06/17 09:19 20 MG Magnesium Oxide (Mag-Ox Tab) 800 mg BID PO 10/04/17 21:00 11/03/17 20:59 10/06/17 09:21 800 MG Risperidone (Risperdal Tab) 0.5 mg DAILY PO 10/05/17 09:00 11/04/17 08:59 10/06/17 09:19 0.5 MG Saccharomyces Boulardii (Florastor Cap) 250 mg BID PO 10/04/17 21:00 11/03/17 20:59 10/06/17 09:20 250 MG Cholecalciferol (Vitamin D Tab) 2,000 inter.unit DAILY PO 10/05/17 09:00 11/04/17 08:59 10/06/17 09:19 2,000 INTER.UNIT Donepezil HCl (Aricept Tab) 5 mg DAILY PO 10/05/17 09:00 11/04/17 08:59 10/06/17 09:20 5 MG Ferrous Sulfate (Feosol Tab) 325 mg DAILY PO 10/05/17 09:00 11/04/17 08:59 10/06/17 09:20 325 MG Pantoprazole Sodium (Protonix Tab) 40 mg DAILY PO 10/05/17 09:00 11/04/17 08:59 10/06/17 09:19 40 MG Levothyroxine Sodium (Synthroid Tab) 100 mcg DAILYBB PO 10/06/17 06:00 11/05/17 05:59 10/06/17 06:30 100 MCG Vancomycin HCl (Vancomycin Oral Soln) 125 mg QID PO 10/05/17 12:00 10/19/17 11:59 10/06/17 12:17 125 MG Raspberry (Raspberry Syrup 5ml Cup) 5 ml QID PO 10/05/17 12:00 10/19/17 11:59 10/06/17 12:17 5 ML Cephalexin Monohydrate (Keflex Cap) 500 mg BID PO 10/06/17 08:00 10/10/17 07:59 10/06/17 09:20 500 MG Enteral Nutritional Formula (Boost) 1 can BIDM PO 10/05/17 17:00 11/04/17 16:59 10/06/17 08:00 1 CAN Objective Vital Signs Date Time Temp Pulse Resp B/P (MAP) Pulse Ox O2 Delivery O2 Flow Rate FiO2 10/06/17 08:00 Room Air 10/06/17 07:35 36.2 57 16 155/80 (105) 98 Room Air 10/06/17 00:00 98 Room Air 10/05/17 23:37 36.4 77 20 174/93 (120) 94 Nasal Cannula 2.0 10/05/17 16:30 Room Air 10/05/17 16:00 36.4 62 18 146/80 (102) 98 Room Air Physical Exam General Appearance: no apparent distress, + pertinent finding (pleasantly demented) Respiratory/Chest: lungs clear, normal breath sounds, no respiratory distress, no accessory muscle use Cardiovascular: regular rate, rhythm, no edema, no murmur Abdomen: normal bowel sounds, non tender, soft Neurologic/Psychiatric: no motor/sensory deficits, alert, normal mood/affect Laboratory Results Last 24 Hours Test 10/06/17 06:07 White Blood Count 4.31 K/uL Red Blood Count 3.82 M/uL Hemoglobin 12.1 g/dL Hematocrit 37.4 % Mean Corpuscular Volume 97.9 fL Mean Corpuscular Hemoglobin 31.7 pg Mean Corpuscular Hemoglobin Concent 32.4 g/dl RDW Standard Deviation 50.0 fL RDW Coefficient of Variation 14.0 % Platelet Count 213 K/uL Mean Platelet Volume 8.8 fL Sodium Level 142 mmol/L Potassium Level 3.5 mmol/L Chloride Level 105 mmol/L Carbon Dioxide Level 32 mmol/L Anion Gap 5.0 mmol/L Blood Urea Nitrogen 16 mg/dl Creatinine 0.92 mg/dl Est Creatinine Clear Calc Drug Dose 44.1 ml/min Estimated GFR () 67.2 Estimated GFR (Non- 58.0 BUN/Creatinine Ratio 16.9 Random Glucose 96 mg/dl Calcium Level 8.8 mg/dl Assessment and Plan This is an 82 year old female with a PMH of advanced dementia, hypothyroidism, chronic urine incontinence, hx. of vaginitis - presents from [facility] with altered mental status and possible melena and subsequently found to have urinary tract infection Metabolic Encephalopathy secondary to UTI 10/06 - now on Keflex - pansensitive urine culture with Citrobacter, gram negative bacilli with sensitivities pending - mentally clearing up, less hallucinating; underlying dementia noted - will continue PT/OT; will likely need SNF discharge 10/05 - gram negative bacilli thus far on cultures - started on Rocephin, which we can continue until cultures return - patient's mental status appears to be baseline dementia - temp is now closer to normal; can transfer to med/surg - likely d/c back to [facility] on 10/06 C. Diff Infection 10/06 - c. diff positive - diarrhea has just about stopped - will do 10 days of oral Vanco Hx. of Vaginitis - will add one dose of Diflucan 150mg x1 Advanced Dementia - continue Donepezil Hypothyroidism - TSH > 30 - patient with bradycardia, hypothermia on admission - will increase Synthroid from 88mcg to 100mcg - close outpatient TSH follow-up in 4 weeks Sacral Decubitus Ulcer - wound care consulted GERD - continue PPI DVT ppx - Lovenox FULL CODE
[2017-10-06 16:00] VITALS: O2SAT 98
[2017-10-06] MEDS: ENOXAPARIN 30 MG/0.3 ML SYR SC SCH (20:02)
[2017-10-06 23:48] VITALS: BP 150/76; PULSE 64; TEMP 36.4; O2SAT 97
[2017-10-07] VITALS: O2SAT 98
[2017-10-07] MEDS: LEVOTHYROXINE 100 MCG TAB PO SCH (06:28)
[2017-10-07 07:44] VITALS: BP 146/87; PULSE 57; TEMP 36.5; O2SAT 99
[2017-10-07] MEDS: BOOST VANILLA PO SCH (08:22)
[2017-10-07] MEDS: FERROUS SULFATE 325 MG TAB PO SCH (08:22)
[2017-10-07] MEDS: DONEPEZIL HCL 5 MG TAB PO SCH (08:22)
[2017-10-07] MEDS: CHOLECALCIFEROL 1000 INTER.UNIT TAB PO SCH (08:23)
[2017-10-07] MEDS: CEPHALEXIN MONOHYDRATE 500 MG CAP PO SCH (08:23)
[2017-10-07] MEDS: SACCHAROMYCES BOUL (FLORASTOR) 250 MG CAP PO SCH (08:23)
[2017-10-07] MEDS: MAGNESIUM OXIDE 400 MG TAB PO SCH (08:23)
[2017-10-07] MEDS: FUROSEMIDE 20 MG TAB PO SCH (08:23)
[2017-10-07] MEDS: PANTOprazole SOD 40 MG TAB PO SCH (08:23)
[2017-10-07] MEDS: VANCOMYCIN HCL 125 MG/2.5ML SOLN PO SCH ×2 (08:24→12:30)
[2017-10-07] MEDS: RASPBERRY SYRUP 5 ML UDP PO SCH ×2 (08:24→12:30)
[2017-10-07] MEDS: RISPERIDONE 0.5 MG TAB PO SCH (08:25)
[2017-10-07 08:30] VITALS: O2SAT 99
[2017-10-07] MEDS ORDERED: CIPROFLOXACIN 500 MG TAB PO SCH (14:30)
--- NOTE | 2017-10-07 14:36 | Progress Note ---
Subjective Date of Service: Oct 07, 2017. Subjective Pt evaluation today including: conversation w/ patient, physical exam, lab review, review of studies, review of inpatient medication list Saw/examined the patient in room 418 Patient is doing well today worked with therapy yesterday No issues yesterday Problem List Medical Problems: (1) UTI (urinary tract infection) Status: Acute (2) Wound of sacral region Status: Acute Medications Current Inpatient Medications Medications (Trade) Dose Ordered Sig/Nora Route Start Time Stop Time Status Last Admin Dose Admin Enoxaparin Sodium (Lovenox Inj) 30 mg Q24H SC 10/04/17 20:00 11/03/17 19:59 10/06/17 20:02 30 MG Acetaminophen (Tylenol Tab) 650 mg Q4H PRN PO 10/04/17 13:30 11/03/17 13:29 10/06/17 12:18 650 MG Ondansetron HCl (Zofran Inj) 4 mg Q6H PRN IV 10/04/17 13:30 11/03/17 13:29 Nystatin (Mycostatin Powder) 1 appln BID PRN EXT 10/04/17 13:30 11/03/17 13:29 Furosemide (Lasix Tab) 20 mg DAILY PO 10/05/17 09:00 11/04/17 08:59 10/07/17 08:23 20 MG Magnesium Oxide (Mag-Ox Tab) 800 mg BID PO 10/04/17 21:00 11/03/17 20:59 10/07/17 08:23 800 MG Risperidone (Risperdal Tab) 0.5 mg DAILY PO 10/05/17 09:00 11/04/17 08:59 10/07/17 08:25 0.5 MG Saccharomyces Boulardii (Florastor Cap) 250 mg BID PO 10/04/17 21:00 11/03/17 20:59 10/07/17 08:23 250 MG Cholecalciferol (Vitamin D Tab) 2,000 inter.unit DAILY PO 10/05/17 09:00 11/04/17 08:59 10/07/17 08:23 2,000 INTER.UNIT Donepezil HCl (Aricept Tab) 5 mg DAILY PO 10/05/17 09:00 11/04/17 08:59 10/07/17 08:22 5 MG Ferrous Sulfate (Feosol Tab) 325 mg DAILY PO 10/05/17 09:00 11/04/17 08:59 10/07/17 08:22 325 MG Pantoprazole Sodium (Protonix Tab) 40 mg DAILY PO 10/05/17 09:00 11/04/17 08:59 10/07/17 08:23 40 MG Levothyroxine Sodium (Synthroid Tab) 100 mcg DAILYBB PO 10/06/17 06:00 11/05/17 05:59 10/07/17 06:28 100 MCG Vancomycin HCl (Vancomycin Oral Soln) 125 mg QID PO 10/05/17 12:00 10/19/17 11:59 10/07/17 12:30 125 MG Raspberry (Raspberry Syrup 5ml Cup) 5 ml QID PO 10/05/17 12:00 10/19/17 11:59 10/07/17 12:30 5 ML Enteral Nutritional Formula (Boost) 1 can BIDM PO 10/05/17 17:00 11/04/17 16:59 10/07/17 08:22 1 CAN Ciprofloxacin (Cipro Tab) 500 mg BID PO 10/07/17 14:30 10/17/17 14:29 10/07/17 14:24 500 MG Objective Vital Signs Date Time Temp Pulse Resp B/P (MAP) Pulse Ox O2 Delivery O2 Flow Rate FiO2 10/07/17 08:30 99 Room Air 10/07/17 07:44 36.5 57 18 146/87 (106) 99 Room Air 10/07/17 00:00 98 Room Air 10/06/17 23:48 36.4 64 16 150/76 (100) 97 Room Air 10/06/17 16:00 98 Room Air Physical Exam General Appearance: no apparent distress Respiratory/Chest: lungs clear, normal breath sounds, no respiratory distress, no accessory muscle use Cardiovascular: regular rate, rhythm, no edema, no murmur Neurologic/Psychiatric: + pertinent finding (more alert/awake) Assessment and Plan This is an 82 year old female with a PMH of advanced dementia, hypothyroidism, chronic urine incontinence, hx. of vaginitis - presents from [facility] with altered mental status and possible melena and subsequently found to have urinary tract infection Metabolic Encephalopathy secondary to UTI 10/07 - Keflex stopped due to Citrobacter growth - now on Cipro 500mg BID x 10 days - continue PO Vanco - doing well, plan to d/c to [facility] 10/06 - now on Keflex - pansensitive urine culture with Citrobacter, gram negative bacilli with sensitivities pending - mentally clearing up, less hallucinating; underlying dementia noted - will continue PT/OT; will likely need SNF discharge 10/05 - gram negative bacilli thus far on cultures - started on Rocephin, which we can continue until cultures return - patient's mental status appears to be baseline dementia - temp is now closer to normal; can transfer to med/surg - likely d/c back to [facility] on 10/06 C. Diff Infection 10/06 - c. diff positive - diarrhea has just about stopped - will do 10 days of oral Vanco Hx. of Vaginitis - will add one dose of Diflucan 150mg x1 Advanced Dementia - continue Donepezil Hypothyroidism - TSH > 30 - patient with bradycardia, hypothermia on admission - will increase Synthroid from 88mcg to 100mcg - close outpatient TSH follow-up in 4 weeks Sacral Decubitus Ulcer - wound care consulted GERD - continue PPI DVT ppx - Lovenox FULL CODE
[2017-10-07] MEDS ORDERED: CPR500 PO ×2 (14:40→16:08)
[2017-10-07] MEDS ORDERED: VANC5CAP PO ×2 (14:40→16:08)
[2017-10-07] MEDS ORDERED: LEVO100T PO ×2 (14:40→16:08)
[2017-10-07 14:41] VITALS: BP 106/65; PULSE 64; TEMP 36.4; O2SAT 96
--- NOTE | 2017-10-07 14:44 | Discharge Instructions ---
Discharge Instructions Date of Service Oct 07, 2017. Admission Reason for Admission: Altered Mental Status Discharge Discharge Diagnosis / Problem: UTI, C. Diff Diarrhea Discharge Goals Goal(s): Decrease discomfort, Improve function, Diagnostic testing, Therapeutic intervention Activity Recommendations Activity Limitations: resume your previous activity . Instructions / Follow-Up Instructions / Follow-Up Patient to be discharged back to [facility] on Cipro 500mg BID x 10 days To be discharged on PO Vanco Current Hospital Diet Patient's current hospital diet: Regular Diet Discharge Diet Recommended Diet: Regular Diet Pending Studies Studies pending at discharge: no Medical Emergencies . Who to Call and When: Medical Emergencies: If at any time you feel your situation is an emergency, please call 911 immediately. . Non-Emergent Contact Non-Emergency issues call your: Primary Care Provider . . "Provider Documentation" section prepared by Iqra Peterson. .
--- NOTE | 2017-10-07 14:48 | Discharge Summary ---
Discharge Summary Date of Service Oct 07, 2017. Discharge Summary Admission Date: Oct 04, 2017 at 13:22 Discharge Date: Oct 07, 2017 Discharge Disposition: nursing home facility Principal Diagnosis: Metabolic Encephalopathy Citrobacter UTI, recurrent UTI C. Diff Diarrhea Medication Reconciliation New Medications: Vancomycin Hcl (Vancomycin) 125 Mg Cap 125 MG PO QID for 10 Days, #40 TABS Ciprofloxacin (Ciprofloxacin HCl) 500 Mg Tab 500 MG PO BID for 10 Days, #20 TAB Changed Medications: Levothyroxine Sodium (Synthroid) 100 Mcg Tab 1 TAB PO DAILY for 30 Days, #30 TAB 5 Refills (Changed from: Levothyroxine Sodium (Synthroid) 88 Mcg Tab 88 Mcg PO DAILY) Continued Medications: Cholecalciferol (Vitamin D) 2,000 Unit Tab 2000 UNITS PO DAILY Donepezil Hydrochloride (Donepezil Hcl) 5 Mg Tab 5 MG PO DAILY Ferrous Sulfate (Ferrous Sulfate) 325 Mg Tab 325 MG PO DAILY Furosemide (Furosemide) 20 Mg Tab 20 MG PO DAILY Magnesium Oxide (Mag-Ox) 400 Mg Tab 800 MG PO BID, TAB Omeprazole (Prilosec) 20 Mg Capcr 20 MG PO DAILY, CAP Risperidone (Risperdal) 0.5 Mg Tab 0.5 MG PO DAILY, TAB Saccharomyces Boulardii (Florastor) 250 Mg Cap 250 MG PO BID Tramadol (Ultram) 50 Mg Tab 50 MG PO Q6 PRN for Pain Admission Information HPI (per Admitting provider): Patient is an 82 yr female with PMH of Hypothyroidism, GERD, Vit D deficiency, H /O colon cancer, mild cognitive impairment, vaginitis, protein Calorie malnutrition, failure to thrive as per records presents from [facility] with history of altered mental status and melena as per ER physician and Staff. Patient is a very poor historian and no family is available at bedside. Patient was unsure as to why she was brought to the hospital. Patient is on chronic Iron therapy and FOBT was negative (done in ED). She was also known to have h/o hemorrhoids. Patient reports productive cough since 3 days and non radiating pressure like sensation at suprapubic region associated with burning micturition. Also reports chronic leg swelling and dizziness which is unchanged. Denies any chest pain, SOB, diarrhea, fever, chills, fall, head trauma, LOC, headache. No other relevant history could be obtained. Patient was also noted to have visual hallucinations over the weekend at [facility] and takes Risperdal at home. Physical Exam (per Admitting): General Appearance: no apparent distress, + thin, + pertinent finding (Frail ) Head: normocephalic, atraumatic Eyes: normal inspection, PERRL, EOMI, sclerae normal ENT: normal ENT inspection, hearing grossly normal Neck: supple, trachea midline Respiratory/Chest: chest non-tender, lungs clear, no respiratory distress, no accessory muscle use, + decreased breath sounds Cardiovascular: regular rate, rhythm, no murmur, + bradycardia, + pertinent finding (1+ b/l edema) Abdomen/GI: normal bowel sounds, non tender, soft Genitourinary - Female: + pertinent finding (+Vaginitis) Back: normal inspection, + pertinent finding (Sacral wound) Extremities/Musculoskelatal: normal inspection, + pedal edema Neurologic/Psych: metal tube cutter II-XII nml as tested, no motor/sensory deficits, alert , + pertinent finding (Grossly no focal deficits) Skin: normal color, + pertinent finding (Sacral wound) Hospital Course This is an 82 year old female with a PMH of advanced dementia, hypothyroidism, chronic urine incontinence, hx. of vaginitis - presents from [facility] with altered mental status and possible melena and subsequently found to have urinary tract infection Metabolic Encephalopathy secondary to UTI 10/07 - Keflex stopped due to Citrobacter growth - now on Cipro 500mg BID x 10 days - continue PO Vanco - doing well, plan to d/c to [facility] 10/06 - now on Keflex - pansensitive urine culture with Citrobacter, gram negative bacilli with sensitivities pending - mentally clearing up, less hallucinating; underlying dementia noted - will continue PT/OT; will likely need SNF discharge 10/05 - gram negative bacilli thus far on cultures - started on Rocephin, which we can continue until cultures return - patient's mental status appears to be baseline dementia - temp is now closer to normal; can transfer to med/surg - likely d/c back to [facility] on 10/06 C. Diff Infection 10/06 - c. diff positive - diarrhea has just about stopped - will do 10 days of oral Vanco Hx. of Vaginitis - will add one dose of Diflucan 150mg x1 Advanced Dementia - continue Donepezil Hypothyroidism - TSH > 30 - patient with bradycardia, hypothermia on admission - will increase Synthroid from 88mcg to 100mcg - close outpatient TSH follow-up in 4 weeks Sacral Decubitus Ulcer - wound care consulted GERD - continue PPI DVT ppx - Lovenox FULL CODE Total time spent on discharge = 40 minutes This includes examination of the patient, discharge planning, medication reconciliation, and communication with other providers. Discharge Instructions Patient to be discharged back to [facility] on Cipro 500mg BID x 10 days To be discharged on PO Vanco
[2017-10-07 15:56] VITALS: BP 106/65; PULSE 64; TEMP 36.4; O2SAT 96
== END 2017-10-07 16:58 | disposition home or self-care (01) | DRG 689 ==
LOC: EDBD 09:19 → C.EDB 09:22 → UNDOADMIN 13:22 → C.2E 13:22 → ENRESERV 10-05 09:57 → C.4E 10-05 10:46 → C.2E 10-05 10:46
PROVIDERS: ADMIT Internal Medicine; ATTEND Family Medicine
DX: N39.0 Urinary tract infection, site not specified (principal); G93.41 Metabolic encephalopathy; K92.1 Melena; A04.72 Enterocolitis due to Clostridium difficile, not specified as recurrent; L89.159 Pressure ulcer of sacral region, unspecified stage; E03.9 Hypothyroidism, unspecified; K21.9 Gastro-esophageal reflux disease without esophagitis; E55.9 Vitamin D deficiency, unspecified; R00.1 Bradycardia, unspecified; D63.8 Anemia in other chronic diseases classified elsewhere; D50.9 Iron deficiency anemia, unspecified; F03.90 Unspecified dementia, unspecified severity, without behavioral disturbance, psychotic disturbance, mood disturbance, and anxiety; R32 Unspecified urinary incontinence; Z79.899 Other long term (current) drug therapy; Z87.891 Personal history of nicotine dependence

== ENCOUNTER 2017-10-14 14:04 | Inpatient (IN) | payer OTHER ==
[~2017-10-14] VITALS: Ht 170.2 cm; Wt 66.6 kg
[~2017-10-14 14:04] MED LIST: CHOL20009 PO; CPR500 PO; DONE1TAB25 PO; FERR1TAB62 PO; LEVO100T PO; LSX20 PO; MAGN400T6 PO; PRLSR20 PO; RISP0.5T10 PO; SACC250C PO; TRAM-10 PO; VANC5CAP PO
--- NOTE | 2017-10-14 14:43 | EMERGENCY ROOM VISIT NOTE ---
History Report prepared by Rosie: Deepti Cabrales Under the Supervision of: Dr. Omero Nunez M.D. 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 As per nursing staff, she was seen at the ED 4 days ago and had x-rays done where she was diagnosed with a UTI and C-diff. Nursing staff also falls all the time The patient reports that she was sitting on the edge of the bed and she slid off and fell 4 times. She notes her left bicep is hurting and her right arm and wrist are also in moderate pain. She has chills "constantly," weakness, and had a headache and denies any chest pain or LOC. The patient reports she had bright blood in her stool. 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 Nurse's notes were reviewed and I agree with. See HPI for pertinent positives & negatives. A total of 10 systems reviewed and were otherwise negative. Past Medical & Surgical Medical Problems: (1) Altered mental status (2) C. difficile diarrhea (3) Dementia (4) Fracture of radius, distal, right, closed (5) Frequent falls (6) GERD (gastroesophageal reflux disease) (7) Hypothyroidism (8) Recurrent UTI Surgical Problems: (1) History of bilateral knee replacement (2) History of total left hip replacement (3) Hx of appendectomy (4) Hx of hysterectomy (5) Hx of resection of small bowel Old medical records were reviewed. Nurse's notes were reviewed and I agree with. Family History Patient reports no known family medical history. Social History Smoking Status: Former Smoker Alcohol Use: none Drug Use: none Marital Status: Housing Status: assisted Occupation Status: retired Current/Historical Medications Scheduled Cholecalciferol (Vitamin D), 2,000 UNITS PO DAILY Ciprofloxacin Hcl (Cipro), 500 MG PO BID Donepezil Hydrochloride (Donepezil Hcl), 5 MG PO DAILY Ferrous Sulfate (Ferrous Sulfate), 325 MG PO DAILY Furosemide (Furosemide), 20 MG PO DAILY Levothyroxine Sodium (Synthroid), 1 TAB PO DAILY Magnesium Oxide (Mag-Ox), 800 MG PO BID Omeprazole (Prilosec), 20 MG PO DAILY Risperidone (Risperdal), 0.5 MG PO DAILY Saccharomyces Boulardii (Florastor), 250 MG PO BID Vancomycin Hcl (Vancomycin), 125 MG PO QID Scheduled PRN Tramadol (Ultram), 50 MG PO Q6 PRN for Pain Allergies Coded Allergies: No Known Allergies (Unverified , 10/14/17) Physical Exam Vital Signs Date Time Temp Pulse Resp B/P (MAP) Pulse Ox O2 Delivery O2 Flow Rate FiO2 10/14/17 17:25 61 10/14/17 16:35 61 20 162/79 98 Room Air 10/14/17 14:38 36.4 68 18 139/66 98 Room Air 10/14/17 14:17 62 Physical Exam General: Chronically ill appearing, somewhat cachectic older female in no acute distress. HEENT: Normal cephalic atraumatic. Pupils are equal round and reactive to light. Extraocular movements are intact. Oropharynx is pink with moist mucous membranes. No swelling of the mouth lips or tongue. Neck: Supple with a midline trachea. No meningeal signs or stiffness, no JVD or bruits. No Stridor. Chest: Clear to auscultation bilaterally. No wheezes or rhonchi. No increased work of breathing. Heart: regular rate and rhythm. Abdomen: Soft nontender, nondistended without rebound guarding or rigidity. Extremities: RUE is swollen mostly around the right wrist. Mild swelling on right leg Spine/Back. Non tender to palpation. No CVA tenderness Skin: Good turgor without rashes. Neurologic exam: Seems to have more weakness on the right leg than the left Medical Decision & Procedures ER Provider Diagnostic Interpretation: Radiology results as stated below per my review and radiologist interpretation: R WRIST MIN 3 VIEWS ROUTINE CLINICAL HISTORY: Right wrist pain following fall. COMPARISON: None FINDINGS: Note is made of an acute minimally displaced right radial fracture with intra-articular extension. There is no distal right ulnar fracture. Chondrocalcinosis is noted. There is marked joint space narrowing within the right wrist. IMPRESSION: 1. Acute minimally displaced distal right radial fracture with intra-articular extension. 2. 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 Electronically signed by: Josef Olivier M.D. 10/14/2017 4:09 PM Dictated Date/Time: 10/14/2017 4:07 PM HEAD WITHOUT CONTRAST (CT) CLINICAL HISTORY: 82 years-old Female presenting with weakness and fall, rt leg weakness. TECHNIQUE: Multidetector CT imaging of the head was performed without the use of intravenous contrast. IV contrast: None. A dose lowering technique was used consistent with the principles of ALARA (as low as reasonably achievable). COMPARISON: 10/04/2017. CT DOSE (mGy.cm): The estimated cumulative dose is 614.27 mGy.cm. FINDINGS: [employer] topogram: Unremarkable. Proportional ventricular and sulcal prominence, likely age-related parenchymal volume loss. 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 No mass effect or midline shift. No hemorrhage or acute territorial infarct. No extra-axial fluid collection. Paranasal sinuses and mastoid air cells clear. Calvarium intact. IMPRESSION: 1. No significant change compared to the prior study. No acute intracranial abnormality. Electronically signed by: Jose Shen M.D. 10/14/2017 4:33 PM Dictated Date/Time: 10/14/2017 4:30 PM CHEST ONE VIEW PORTABLE CLINICAL HISTORY: Chest pain. COMPARISON STUDY: Chest radiograph October 04, 2017. FINDINGS: Lung volumes are normal. No pneumothorax or pleural effusion is noted. There is no consolidation or evidence for pulmonary edema. Patient is rotated. Cardiac size is normal. IMPRESSION: No acute cardiopulmonary findings. Electronically signed by: Josef Olivier M.D. 10/14/2017 4:07 PM Dictated Date/Time: 10/14/2017 4:06 PM Laboratory Results 10/14/17 15:50 Red Blood Count 3.62, Mean Corpuscular Volume 99.2, Mean Corpuscular Hemoglobin 32.0, Mean Corpuscular Hemoglobin Concent 32.3, Mean Platelet Volume 9.3, Neutrophils (%) (Auto) 76.4, Lymphocytes (%) (Auto) 12.8, Monocytes (%) (Auto) 8.4, Eosinophils (%) (Auto) 1.5, Basophils (%) (Auto) 0.2, Neutrophils # (Auto) 4.11, Lymphocytes # (Auto) 0.69, Monocytes # (Auto) 0.45, Eosinophils # (Auto) 0.08, Basophils # (Auto) 0.01 10/14/17 15:50 10/14/17 16:57 Test 10/14/17 14:45 10/14/17 15:50 10/14/17 15:55 10/14/17 16:14 Creatine Kinase MB Ratio (0-3.0) White Blood Count 5.38 K/uL (4.8-10.8) Red Blood Count 3.62 M/uL (4.2-5.4) Hemoglobin 11.6 g/dL (12.0-16.0) Hematocrit 35.9 % (37-47) Mean Corpuscular Volume 99.2 fL (80-100) Mean Corpuscular Hemoglobin 32.0 pg (25-34) Mean Corpuscular Hemoglobin Concent 32.3 g/dl (32-36) Platelet Count 227 K/uL (130-400) Mean Platelet Volume 9.3 fL (7.4-10.4) Neutrophils (%) (Auto) 76.4 % Lymphocytes (%) (Auto) 12.8 % Monocytes (%) (Auto) 8.4 % Eosinophils (%) (Auto) 1.5 % Basophils (%) (Auto) 0.2 % Neutrophils # (Auto) 4.11 K/uL (1.4-6.5) Lymphocytes # (Auto) 0.69 K/uL (1.2-3.4) Monocytes # (Auto) 0.45 K/uL (0.11-0.59) Eosinophils # (Auto) 0.08 K/uL (0-0.5) Basophils # (Auto) 0.01 K/uL (0-0.2) RDW Standard Deviation 51.0 fL (36.4-46.3) RDW Coefficient of Variation 14.3 % (11.5-14.5) Immature Granulocyte % (Auto) 0.7 % Immature Granulocyte # (Auto) 0.04 K/uL (0.00-0.02) Prothrombin Time 9.9 SECONDS (9.0-12.0) Prothromb Time International Ratio 0.9 (0.9-1.1) Activated Partial Thromboplast Time 26.6 SECONDS (21.0-31.0) Partial Thromboplastin Ratio 1.0 Anion Gap 5.0 mmol/L (3-11) Est Creatinine Clear Calc Drug Dose 45.3 ml/min Estimated GFR () 69.0 Estimated GFR (Non- 59.5 BUN/Creatinine Ratio 19.4 (10-20) Calcium Level 8.7 mg/dl (8.5-10.1) Total Bilirubin 0.7 mg/dl (0.2-1) Alanine Aminotransferase (ALT/SGPT) 22 U/L (12-78) Alkaline Phosphatase 88 U/L (45-117) Creatine Kinase MB 2.2 ng/ml (0.5-3.6) Total Protein 6.5 gm/dl (6.4-8.2) Albumin 2.6 gm/dl (3.4-5.0) Lipase 237 U/L (73-393) Thyroid Stimulating Hormone (TSH) 14.600 uIu/ml (0.300-4.500) Bedside Troponin I < 0.030 ng/ml (0-0.045) Urine Color YELLOW Urine Appearance CLOUDY (CLEAR) Urine pH 7.5 (4.5-7.5) Urine Specific [place] 1.014 (1.000-1.030) Urine Protein NEG (NEG) Urine Glucose (UA) NEG (NEG) Urine Ketones NEG (NEG) Urine Occult Blood TRACE (NEG) Urine Nitrite POS (NEG) Urine Bilirubin NEG (NEG) Urine Urobilinogen NEG (NEG) Urine Leukocyte Esterase LARGE (NEG) Urine WBC (Auto) >30 /hpf (0-5) Urine RBC (Auto) 5-10 /hpf (0-4) Urine Hyaline Casts (Auto) 1-5 /lpf (0-5) Urine Epithelial Cells (Auto) 5-10 /lpf (0-5) Urine Bacteria (Auto) 4+ (NEG) Test 10/14/17 16:57 Direct Bilirubin 0.2 mg/dl (0-0.2) Aspartate Amino Transf (AST/SGOT) 10 U/L (15-37) Total Creatine Kinase 30 U/L (26-192) Laboratory studies as stated above per my review. Medications Administered Medications (Trade) Dose Ordered Sig/Nora Route Start Time Stop Time Status Last Admin Dose Admin Sodium Chloride 250 ml @ 999 mls/hr Q16M STAT IV 10/14/17 14:45 10/14/17 15:00 DC 10/14/17 14:45 999 MLS/HR Sodium Chloride 1,000 ml @ 100 mls/hr Q10H STAT IV 10/14/17 14:45 10/15/17 00:44 4/6/18 14:45 100 MLS/HR ECG Per My Interpretation Indication: weakness Rate (beats per minute): 64 Rhythm: normal sinus Findings: no acute ischemic change, no ectopy Comparison ECG Date: October 04, 2017 Change: no significant change ED Course 1434: Past medical records reviewed. The patient was evaluated in room B9, and a complete history and physical examination were performed. 1445: Sodium Chloride 1000 ml @ 100 mls/hr IV Sodium Chloride 250 ml @ 999 mls/hr 1729: I discussed the patient's case with RITIKA Leonard. She will further evaluate the patient. Medical Decision Differential diagnosis: Etiologies such as infection, sepsis, intercranial process, CVA, cardiac disease , rhabdo, electrolyte or metabolic abnormality, infection as well as others were entertained. This patient comes in as described above. She was placed in room B9. She lives in a assisted and has had frequent falls. she has fallen several times. on exam, she has some swelling around the right wrist. She says she keeps lying out of bed. She was just discharged from here about a week ago with a UTI and C. difficile. She may be weak in the right leg it may also be pain related. IV access established a did a CAT scan of her head. Chest x-ray x-ray of the right wrist and multiple blood testing was obtained as well as urinalysis and culture. She was reassessed frequently. CAT scan of her head was unremarkable. Right wrist shows a fracture. TSH is elevated however down from before urinalysis does suggest a UTI. I am concerned that she keeps falling and I do think she needs to be admitted/observe for weakness and frequent falls as well as a wrist fracture. I counsulted the [facility] hospitalist to see in the ER for these measures Medication Reconcilliation Current Medication List: was personally reviewed by me Blood Pressure Screening Patient's blood pressure: Normal blood pressure Blood pressure disposition: Did not require urgent referral Consults Time Called: 1720 Consulting Physician: RITIKA Leonard Impression Primary Impression: Weakness Additional Impressions: UTI (urinary tract infection) Wrist fracture Frequent falls Scribe Attestation The scribe's documentation has been prepared under my direction and personally reviewed by me in its entirety. I confirm that the note above accurately reflects all work, treatment, procedures, and medical decision making performed by me. Departure Information Dispostion Being Evaluated By Hospitalist (RITIKA Leonrad) Referrals CINDY RIVAS (PCP) Patient Instructions My [facility] Problem Qualifiers
[2017-10-14] MEDS ORDERED: SODIUM CHLORIDE 0.9% 1000ML 1,000 ML IV STA (14:45)
[2017-10-14] MEDS ORDERED: SODIUM CHLORIDE 0.9% 1000ML 250 ML IV STA (14:45)
[2017-10-14] MEDS ORDERED: CIPR-255 PO (14:59)
[2017-10-14 16:04] LABS: BASO % 0.2 %; BASO ABS # 0.01 K/uL (0-0.2); EOS % 1.5 %; EOS ABS # 0.08 K/uL (0-0.5); HEMATOCRIT 35.9 % (37-47); HEMOGLOBIN 11.6 g/dL (12.0-16.0); IG# 0.04 K/uL (0.00-0.02); LYMPH % 12.8 %; LYMPH ABS # 0.69 K/uL (1.2-3.4); MEAN CELL VOLUME 99.2 fL (80-100); MEAN CORPUSCULAR HGB CONC 32.3 g/dl (32-36); MEAN PLATELET VOLUME 9.3 fL (7.4-10.4); MONO % 8.4 %; MONO ABS # 0.45 K/uL (0.11-0.59); NEUT % 76.4 %; NEUT ABS # 4.11 K/uL (1.4-6.5); PLATELET COUNT 227 K/uL (130-400); RED CELL DISTRIBUTION WIDTH CV 14.3 % (11.5-14.5); WHITE BLOOD COUNT 5.38 K/uL (4.8-10.8)
--- NOTE | 2017-10-14 16:08 | DIAGNOSTIC IMAGING REPORT ---
CHEST ONE VIEW PORTABLE CLINICAL HISTORY: Chest pain. COMPARISON STUDY: Chest radiograph October 04, 2017. FINDINGS: Lung volumes are normal. No pneumothorax or pleural effusion is noted. There is no consolidation or evidence for pulmonary edema. Patient is rotated. Cardiac size is normal. IMPRESSION: No acute cardiopulmonary findings. Electronically signed by: Josef Olivier M.D. 10/14/2017 4:07 PM Dictated Date/Time: 10/14/2017 4:06 PM
--- NOTE | 2017-10-14 16:10 | DIAGNOSTIC IMAGING REPORT ---
R WRIST MIN 3 VIEWS ROUTINE CLINICAL HISTORY: Right wrist pain following fall. COMPARISON: None FINDINGS: Note is made of an acute minimally displaced right radial fracture with intra-articular extension. There is no distal right ulnar fracture. Chondrocalcinosis is noted. There is marked joint space narrowing within the right wrist. IMPRESSION: 1. Acute minimally displaced distal right radial fracture with intra-articular extension. 2. 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 Electronically signed by: Josef Olivier M.D. 10/14/2017 4:09 PM Dictated Date/Time: 10/14/2017 4:07 PM
[2017-10-14 16:15] LABS: INR 0.9 (0.9-1.1); PTT PATIENT 26.6 SECONDS (21.0-31.0)
[2017-10-14 16:35] LABS: ALBUMIN 2.6 gm/dl (3.4-5.0); ALKALINE PHOSPHATASE 88 U/L (45-117); ALT/SGPT 22 U/L (12-78); BLOOD UREA NITROGEN 18 mg/dl (7-18); CALCIUM 8.7 mg/dl (8.5-10.1); CARBON DIOXIDE 29 mmol/L (21-32); CKMB 2.2 ng/ml (0.5-3.6); GLUCOSE 85 mg/dl (70-99); LIPASE 237 U/L (73-393); SODIUM 139 mmol/L (136-145); TOTAL PROTEIN 6.5 gm/dl (6.4-8.2)
--- NOTE | 2017-10-14 16:35 | DIAGNOSTIC IMAGING REPORT ---
HEAD WITHOUT CONTRAST (CT) CLINICAL HISTORY: 82 years-old Female presenting with weakness and fall, rt leg weakness. TECHNIQUE: Multidetector CT imaging of the head was performed without the use of intravenous contrast. IV contrast: None. A dose lowering technique was used consistent with the principles of ALARA (as low as reasonably achievable). COMPARISON: 10/04/2017. CT DOSE (mGy.cm): The estimated cumulative dose is 614.27 mGy.cm. FINDINGS: [employer] topogram: Unremarkable. Proportional ventricular and sulcal prominence, likely age-related parenchymal volume loss. 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 No mass effect or midline shift. No hemorrhage or acute territorial infarct. No extra-axial fluid collection. Paranasal sinuses and mastoid air cells clear. Calvarium intact. IMPRESSION: 1. No significant change compared to the prior study. No acute intracranial abnormality. Electronically signed by: Jose Shen M.D. 10/14/2017 4:33 PM Dictated Date/Time: 10/14/2017 4:30 PM
[2017-10-14 17:19] LABS: POTASSIUM 4.3 mmol/L (3.5-5.1)
[2017-10-14] MEDS ORDERED: MAGNESIUM HYDROXIDE SUSP 30 ML UDC PO PRN (18:30)
[2017-10-14] MEDS ORDERED: ONDANSETRON INJ 2 MG/ML 2 ML VIAL IV PRN (18:30)
[2017-10-14] MEDS ORDERED: TRAMADOL HCL 50 MG TAB PO PRN (18:45)
[2017-10-14 19:15] VITALS: BP 139/72; PULSE 59; TEMP 36.2; O2SAT 98
--- NOTE | 2017-10-14 19:23 | History and Physical ---
History & Physical Date & Time of Service: Oct 14, 2017 at 18:38 Chief Complaint: Fall/Arm Pain Primary Care Physician: Roberta Vigilviola Christopher Forrest History of Present Illness Source: patient, clinic records, hospital records Pt is 82 y/o F with PMH Dementia, hypothyroidism, GERD, hx colon CA presented to ER from [facility] with complaint of falls. No family at bedside upon my exam. Patient poor historian. Patient had hospital admission 10/04/17-10/07/17 for altered mental status, UTI, C. difficile. Discharged on Cipro and vancomycin. Patient states he has been sliding out of bed and this is a couple of times over the last couple of days. Patient denies hitting head, headache, dizziness, syncope. Patient complaining of discomfort to right wrist. Denies any paresthesias, elbow pain or shoulder pain. States having some increased difficulty moving her right leg she thinks she noticed that today. Patient states had some diarrhea this morning. History intermittent melena, patient on iron. Patient does not think she has any dysuria. Reports chronic lower extremity edema. Denies fever/chills, diaphoresis, N/V/D/C, PIÑA, vision changes, neck pain, CP, SOB, orthopnea, palpitations, cough, sore throat, choking, otalgia, rhinorrhea, abdominal pain. Past Medical/Surgical History Medical Problems: (1) C. difficile diarrhea Status: Chronic (2) Dementia Status: Chronic (3) GERD (gastroesophageal reflux disease) Status: Chronic (4) Hypothyroidism Status: Chronic (5) Recurrent UTI Status: Chronic Surgical Problems: (1) History of bilateral knee replacement Status: Resolved (2) History of total left hip replacement Status: Resolved (3) Hx of appendectomy Status: Resolved (4) Hx of hysterectomy Status: Resolved (5) Hx of resection of small bowel Permanent Comment: enterectomy small bowel resection - Dr Melgar - [facility] [place] Status: Resolved Family History Diabetes mellitus Hypertension Social History Smoking Status: Never Smoker Smokeless Tobacco Use: No Alcohol Use: none Drug Use: none Marital Status: Housing status: other ([facility]) Occupational Status: retired Allergies Coded Allergies: No Known Allergies (Unverified , 10/14/17) Home Medications Scheduled Cholecalciferol (Vitamin D), 2,000 UNITS PO DAILY Ciprofloxacin Hcl (Cipro), 500 MG PO BID Donepezil Hydrochloride (Donepezil Hcl), 5 MG PO DAILY Ferrous Sulfate (Ferrous Sulfate), 325 MG PO DAILY Furosemide (Furosemide), 20 MG PO DAILY Levothyroxine Sodium (Synthroid), 1 TAB PO DAILY Magnesium Oxide (Mag-Ox), 800 MG PO BID Omeprazole (Prilosec), 20 MG PO DAILY Risperidone (Risperdal), 0.5 MG PO DAILY Saccharomyces Boulardii (Florastor), 250 MG PO BID Vancomycin Hcl (Vancomycin), 125 MG PO QID Scheduled PRN Tramadol (Ultram), 50 MG PO Q6 PRN for Pain Review of Systems See HPI for pertinent positives & negatives. All other systems reviewed and were otherwise negative Physical Exam Vital Signs Date Time Temp Pulse Resp B/P (MAP) Pulse Ox O2 Delivery O2 Flow Rate FiO2 10/14/17 17:25 61 10/14/17 16:35 61 20 162/79 98 Room Air 10/14/17 14:38 36.4 68 18 139/66 98 Room Air 10/14/17 14:17 62 General Appearance: no apparent distress, + thin Head: normocephalic, atraumatic Eyes: normal inspection, PERRL, sclerae normal ENT: hearing grossly normal, pharynx normal, + pertinent finding (Mucous membranes moist) Neck: supple, trachea midline Respiratory/Chest: chest non-tender, lungs clear, normal breath sounds, no respiratory distress Cardiovascular: regular rate, rhythm, normal peripheral pulses Abdomen/GI: normal bowel sounds, non tender, soft Back: no CVA tenderness Extremities/Musculoskelatal: + pedal edema (1+ bilaterally), + pertinent finding (Right wrist with edema, positive tenderness to palpation greater over distal radius, limited range of motion secondary to tenderness, distal pulses palpable, brisk cap refill. Right hip and right knee with limited active range of motion, passive range of motion of right hip and right knee causes discomfort , distal pulses intact, brisk cap refill. Remaining extremities with range of motion intact and nontender.) Neurologic/Psych: alert, + pertinent finding (Oriented to person, oriented to month, knows Easter was 5 days ago.) Skin: warm/dry, + pertinent finding (sacral wound) Diagnostics Laboratory Results Results Past 24 Hours Test 10/14/17 14:45 10/14/17 15:50 10/14/17 15:55 10/14/17 16:14 Range/Units Creatine Kinase MB Ratio 0-3.0 White Blood Count 5.38 4.8-10.8 K/uL Red Blood Count 3.62 4.2-5.4 M/uL Hemoglobin 11.6 12.0-16.0 g/dL Hematocrit 35.9 37-47 % Mean Corpuscular Volume 99.2 80-100 fL Mean Corpuscular Hemoglobin 32.0 25-34 pg Mean Corpuscular Hemoglobin Concent 32.3 32-36 g/dl Platelet Count 227 130-400 K/uL Mean Platelet Volume 9.3 7.4-10.4 fL Neutrophils (%) (Auto) 76.4 % Lymphocytes (%) (Auto) 12.8 % Monocytes (%) (Auto) 8.4 % Eosinophils (%) (Auto) 1.5 % Basophils (%) (Auto) 0.2 % Neutrophils # (Auto) 4.11 1.4-6.5 K/uL Lymphocytes # (Auto) 0.69 1.2-3.4 K/uL Monocytes # (Auto) 0.45 0.11-0.59 K/uL Eosinophils # (Auto) 0.08 0-0.5 K/uL Basophils # (Auto) 0.01 0-0.2 K/uL RDW Standard Deviation 51.0 36.4-46.3 fL RDW Coefficient of Variation 14.3 11.5-14.5 % Immature Granulocyte % (Auto) 0.7 % Immature Granulocyte # (Auto) 0.04 0.00-0.02 K/uL Prothrombin Time 9.9 9.0-12.0 SECONDS Prothromb Time International Ratio 0.9 0.9-1.1 Activated Partial Thromboplast Time 26.6 21.0-31.0 SECONDS Partial Thromboplastin Ratio 1.0 Sodium Level 139 136-145 mmol/L Potassium Level 3.5-5.1 mmol/L Chloride Level 105 98-107 mmol/L Carbon Dioxide Level 29 21-32 mmol/L Anion Gap 5.0 3-11 mmol/L Blood Urea Nitrogen 18 7-18 mg/dl Creatinine 0.90 0.60-1.20 mg/dl Est Creatinine Clear Calc Drug Dose 45.3 ml/min Estimated GFR () 69.0 Estimated GFR (Non- 59.5 BUN/Creatinine Ratio 19.4 10-20 Random Glucose 85 70-99 mg/dl Calcium Level 8.7 8.5-10.1 mg/dl Total Bilirubin 0.7 0.2-1 mg/dl Direct Bilirubin 0-0.2 mg/dl Aspartate Amino Transf (AST/SGOT) 15-37 U/L Alanine Aminotransferase (ALT/SGPT) 22 12-78 U/L Alkaline Phosphatase 88 45-117 U/L Total Creatine Kinase 26-192 U/L Creatine Kinase MB 2.2 0.5-3.6 ng/ml Total Protein 6.5 6.4-8.2 gm/dl Albumin 2.6 3.4-5.0 gm/dl Lipase 237 73-393 U/L Thyroid Stimulating Hormone (TSH) 14.600 0.300-4.500 uIu/ml Bedside Troponin I < 0.030 0-0.045 ng/ml Urine Color YELLOW Urine Appearance CLOUDY CLEAR Urine pH 7.5 4.5-7.5 Urine Specific [place] 1.014 1.000-1.030 Urine Protein NEG NEG Urine Glucose (UA) NEG NEG Urine Ketones NEG NEG Urine Occult Blood TRACE NEG Urine Nitrite POS NEG Urine Bilirubin NEG NEG Urine Urobilinogen NEG NEG Urine Leukocyte Esterase LARGE NEG Urine WBC (Auto) >30 0-5 /hpf Urine RBC (Auto) 5-10 0-4 /hpf Urine Hyaline Casts (Auto) 1-5 0-5 /lpf Urine Epithelial Cells (Auto) 5-10 0-5 /lpf Urine Bacteria (Auto) 4+ NEG Test 10/14/17 16:57 Range/Units Potassium Level 4.3 3.5-5.1 mmol/L Direct Bilirubin 0.2 0-0.2 mg/dl Aspartate Amino Transf (AST/SGOT) 10 15-37 U/L Total Creatine Kinase 30 26-192 U/L Microbiology Results 10/14/17 Urine Culture, Received Pending Diagnostic Radiology RIGHT WRIST X-RAY: IMPRESSION: 1. Acute minimally displaced distal right radial fracture with intra-articular extension. 2. 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 CXR: IMPRESSION: No acute cardiopulmonary findings. CT HEAD: IMPRESSION: 1. No significant change compared to the prior study. No acute intracranial abnormality. EKG EKG: Normal sinus rhythm, rate 64, no significant changes noted 09/25 Read by cardiology: Poor data quality, interpretation may be adversely affected Normal sinus rhythm Minimal voltage criteria for LVH, may be normal variant Nonspecific ST abnormality Abnormal ECG When compared with ECG of 04-OCT-2017 10:10, No significant change was found Confirmed by DAVID CHRISTIANSON ([id number]) on 10/14/2017 4:27:00 PM Impression Assessment and Plan FREQUENT FALLS Patient with reported several falls sliding out of bed over the past couple of days. CT head no acute changes. Patient afebrile, vitals stable. Chest x-ray no acute infiltrate. UA remains consistent with UTI, patient known UTI being treated with Cipro outpatient. -Obtaining x-ray right hip and right knee secondary to tenderness with range of motion and recent falls -PT/OT eval RIGHT DISTAL RADIUS FRACTURE, CLOSED In ER right wrist x-ray: Acute minimally displaced distal right radial fracture with intra-articular extension. Splint placed in ER. -Continue tramadol as needed pain -Ortho consult UTI History incontinence and recurrent UTIs. Patient afebrile no leukocytosis. Patient with UTI hospital 10/04/17-10/07/17, urine culture Citrobacter resistant to Rocephin. Patient discharged on Cipro 10 days. Today day 7. UA in ER consistent with infection -Pending urine culture -Cefepime -IV fluids C. DIFFICILE Patient with positive C. difficile and hospital 10/04/17-10/07/17, treated with vancomycin 10 days. Today today 7. Patient reports some diarrhea today. History of intermittent melena, is on iron supplements. Patient Hgb: 11.6 -Continue vancomycin p.o. -Continue Florastor -Obtain Hemoccult stool -Continue to monitor and monitor CBC HYPOTHYROIDISM TSH: 14, improved from >30 last week -Continue levothyroxine GERD -Continue PPI DEMENTIA Patient reported at baseline per halfway staff -Continue donepezil HISTORY PROTEIN MALNUTRITION/FAILURE TO THRIVE -Boost SACRAL WOUND -Wound nurse consult DVT Prophylaxis -Lovenox Disposition admit MedSur Full code Pt was seen with Dr Peterson. See addendum ADDENDUM: This is an 82 year old female recently admitted and discharged from [facility] - was seen for recurrent UTIs and metabolic encephalopathy. Presents here from a nursing facility due to a fall and a R wrist fracture. Patient is more confused than baseline. Difficult to obtain a good history. Plan: Metabolic Encephalopathy secondary to Recurrent UTI - was actually still taking oral Cipro - will change to Cefepime, recheck urine culture - order PT/OT - underlying dementia, currently slightly worsened from baseline C. Diff Infection - continue oral Vanco for another 3-4 days Wound care consulted, discharge planning, PT/OT Resuscitation Status VTE Prophylaxis Will order VTE Prophylaxis: Yes Additional Copies To CINDY FORREST VILL
[2017-10-14 19:30] VITALS: O2SAT 98
[2017-10-14] MEDS ORDERED: SODIUM CHLORIDE 0.9% 1000ML 1,000 ML IV SCH (19:45)
[2017-10-14 20:07] VITALS: O2SAT 98; Ht 170.2 cm; Wt 66.6 kg
[2017-10-14] MEDS ORDERED: CEFEPIME IV 1,000 MG in DEXTROSE 5% 100ML 100 ML IV SCH (21:00)
--- NOTE | 2017-10-14 21:01 | DIAGNOSTIC IMAGING REPORT ---
R KNEE 3 VIEWS CLINICAL HISTORY: Right knee pain status post trauma COMPARISON: None. DISCUSSION: There are postsurgical changes of a total right knee arthroplasty. No acute fractures or dislocations are visualized. The bones are osteopenic. IMPRESSION: Postsurgical change. No acute fractures. Electronically signed by: Travis Johnson M.D. 10/14/2017 8:59 PM Dictated Date/Time: 10/14/2017 8:58 PM
--- NOTE | 2017-10-14 21:01 | DIAGNOSTIC IMAGING REPORT ---
R HIP UNILATERAL 2 VIEWS CLINICAL HISTORY: Right hip pain status post trauma COMPARISON: None. DISCUSSION: The bones are osteopenic. No acute fractures or dislocations are visualized. There are mild osteoarthritic changes. IMPRESSION: No acute fractures or dislocations identified. Electronically signed by: Travis Johnson M.D. 10/14/2017 9:00 PM Dictated Date/Time: 10/14/2017 8:59 PM
[2017-10-14] MEDS: MAGNESIUM OXIDE 400 MG TAB PO SCH (21:06)
[2017-10-14] MEDS: SACCHAROMYCES BOUL (FLORASTOR) 250 MG CAP PO SCH (21:06)
[2017-10-14] MEDS: RASPBERRY SYRUP 5 ML UDP PO SCH (21:07)
[2017-10-14] MEDS: ENOXAPARIN 30 MG/0.3 ML SYR SQ SCH (21:08)
[2017-10-14] MEDS: VANCOMYCIN HCL 125 MG/2.5ML SOLN PO SCH (21:08)
[2017-10-14] MEDS: CEFEPIME IV 1,000 MG in SYRINGE 0 ML IV SCH (21:24)
[2017-10-14] MEDS ORDERED: IV FLUIDS COMPLETED PRN (21:30)
[2017-10-14] MEDS ORDERED: PNEUMOCOCCAL POLYSACCHARIDES 25 MCG/0.5 ML VIAL/SYR IM. ONE (21:45)
[2017-10-14] MEDS ORDERED: PNEUMOCOCCAL ADMINISTRATION CHARGE ONE (21:45)
[2017-10-14 23:12] VITALS: BP 115/68; PULSE 75; TEMP 36.2; O2SAT 97
[2017-10-15] MEDS: LEVOTHYROXINE 100 MCG TAB PO SCH (06:23)
[2017-10-15 07:50] VITALS: BP 142/70; PULSE 62; TEMP 36.3; O2SAT 98
[2017-10-15 07:52] LABS: HEMATOCRIT 33.5 % (37-47); HEMOGLOBIN 10.6 g/dL (12.0-16.0); MEAN CELL VOLUME 99.4 fL (80-100); MEAN CORPUSCULAR HEMOGLOBIN 31.5 pg (25-34); MEAN CORPUSCULAR HGB CONC 31.6 g/dl (32-36); PLATELET COUNT 210 K/uL (130-400); RED CELL DISTRIBUTION WIDTH CV 14.3 % (11.5-14.5); RED CELL DISTRIBUTION WIDTH SD 51.6 fL (36.4-46.3); WHITE BLOOD COUNT 4.56 K/uL (4.8-10.8)
[2017-10-15 08:24] LABS: CALCIUM 8.3 mg/dl (8.5-10.1); CREATININE 0.78 mg/dl (0.60-1.20); POTASSIUM 4.1 mmol/L (3.5-5.1)
[2017-10-15] MEDS: BOOST VANILLA PO SCH (08:55)
[2017-10-15] MEDS: DONEPEZIL HCL 5 MG TAB PO SCH (08:58)
[2017-10-15] MEDS: FERROUS SULFATE 325 MG TAB PO SCH (08:59)
[2017-10-15] MEDS: CHOLECALCIFEROL 1000 INTER.UNIT TAB PO SCH (08:59)
[2017-10-15] MEDS: FUROSEMIDE 20 MG TAB PO SCH (09:00)
[2017-10-15] MEDS: MAGNESIUM OXIDE 400 MG TAB PO SCH ×2 (09:00→20:32)
[2017-10-15] MEDS: SACCHAROMYCES BOUL (FLORASTOR) 250 MG CAP PO SCH ×2 (09:00→20:31)
[2017-10-15] MEDS: RISPERIDONE 0.5 MG TAB PO SCH (09:01)
[2017-10-15] MEDS: VANCOMYCIN HCL 125 MG/2.5ML SOLN PO SCH ×4 (09:01→20:31)
[2017-10-15] MEDS: RASPBERRY SYRUP 5 ML UDP PO SCH ×4 (09:01→20:31)
[2017-10-15] MEDS: PANTOprazole SOD 40 MG TAB PO SCH (09:01)
[2017-10-15] MEDS: ENOXAPARIN 30 MG/0.3 ML SYR SQ SCH ×2 (09:02→20:32)
--- NOTE | 2017-10-15 11:52 | Orthopedic Consultation ---
Orthopedic Consultation Date of Consultation: Oct 15, 2017. Attending Physician: Demetrice Arshad DO Reason for Consultation: Right distal radius fx History of Present Illness Patient seen sitting in chair at bedside, comfortable. Patient is a poor historian, reports fall one day prior onto left wrist and subsequent pain, admits to previous fall 3 weeks prior onto same wrist. Denies numbness/ tingling in RUE. Denies pain in other extremities. Patient is left handed. Past Medical/Surgical History Medical Problems: (1) UTI (urinary tract infection) Status: Acute (2) Weakness Status: Acute (3) Wound of sacral region Status: Acute (4) Wrist fracture Status: Acute Family History Diabetes mellitus Hypertension Social History Smoking Status: Former Smoker Smokeless Tobacco Use: No Alcohol Use: none Drug Use: none Marital Status: Housing Status: longterm Occupation Status: retired Allergies Coded Allergies: No Known Allergies (Unverified , 10/14/17) Home Medications Scheduled Cholecalciferol (Vitamin D), 2,000 UNITS PO DAILY Ciprofloxacin Hcl (Cipro), 500 MG PO BID Donepezil Hydrochloride (Donepezil Hcl), 5 MG PO DAILY Ferrous Sulfate (Ferrous Sulfate), 325 MG PO DAILY Furosemide (Furosemide), 20 MG PO DAILY Levothyroxine Sodium (Synthroid), 1 TAB PO DAILY Magnesium Oxide (Mag-Ox), 800 MG PO BID Omeprazole (Prilosec), 20 MG PO DAILY Risperidone (Risperdal), 0.5 MG PO DAILY Saccharomyces Boulardii (Florastor), 250 MG PO BID Vancomycin Hcl (Vancomycin), 125 MG PO QID Scheduled PRN Tramadol (Ultram), 50 MG PO Q6 PRN for Pain Current Inpatient Medications Current Inpatient Medications Medications (Trade) Dose Ordered Sig/Nora Route Start Time Stop Time Status Last Admin Dose Admin Acetaminophen (Tylenol Tab) 650 mg Q4H PRN PO 10/14/17 18:30 11/13/17 18:29 Magnesium Hydroxide (Milk Of Magnesia Susp) 30 ml Q6H PRN PO 10/14/17 18:30 11/13/17 18:29 Ondansetron HCl (Zofran Inj) 4 mg Q6H PRN IV 10/14/17 18:30 11/13/17 18:29 Furosemide (Lasix Tab) 20 mg DAILY PO 10/15/17 09:00 5/7/18 08:59 10/15/17 09:00 20 MG Levothyroxine Sodium (Synthroid Tab) 100 mcg DAILYBB PO 10/15/17 06:00 11/14/17 06:59 10/15/17 06:23 100 MCG Magnesium Oxide (Mag-Ox Tab) 800 mg BID PO 10/14/17 21:00 11/13/17 20:59 10/15/17 09:00 800 MG Risperidone (Risperdal Tab) 0.5 mg DAILY PO 10/15/17 09:00 11/14/17 08:59 10/15/17 09:01 0.5 MG Saccharomyces Boulardii (Florastor Cap) 250 mg BID PO 10/14/17 21:00 11/13/17 20:59 10/15/17 09:00 250 MG Tramadol HCl (Ultram Tab) 50 mg Q6 PRN PO 10/14/17 18:45 11/13/17 18:44 10/15/17 08:08 50 MG Vancomycin HCl (Vancomycin Oral Soln) 125 mg QID PO 10/14/17 21:00 10/17/17 23:00 10/15/17 09:01 125 MG Cholecalciferol (Vitamin D Tab) 2,000 inter.unit DAILY PO 10/15/17 09:00 11/14/17 08:59 10/15/17 08:59 2,000 INTER.UNIT Donepezil HCl (Aricept Tab) 5 mg DAILY PO 10/15/17 09:00 11/14/17 08:59 10/15/17 08:58 5 MG Ferrous Sulfate (Feosol Tab) 325 mg DAILY PO 10/15/17 09:00 11/14/17 08:59 10/15/17 08:59 325 MG Pantoprazole Sodium (Protonix Tab) 40 mg DAILY PO 10/15/17 09:00 11/14/17 08:59 10/15/17 09:01 40 MG Enoxaparin Sodium (Lovenox Inj) 30 mg Q12 SQ 10/14/17 21:00 11/13/17 20:59 10/15/17 09:02 30 MG Enteral Nutritional Formula (Boost) 1 can DAILY PO 10/15/17 09:00 11/14/17 08:59 10/15/17 08:55 1 CAN Raspberry (Raspberry Syrup 5ml Cup) 5 ml QID PO 10/14/17 21:00 10/28/17 20:59 10/15/17 09:01 5 ML Cefepime HCl 1000 mg/Syringe 11 ml @ 5.5 mls/min Q24H IV 10/14/17 20:00 10/19/17 19:59 10/14/17 21:24 5.5 MLS/MIN Miscellaneous (Iv Fluids Completed) 1 ea PRN PRN N/A 10/14/17 21:30 10/14/18 21:29 Review of Systems ROS negative with the exception of those mentioned in the HPI above Physical Exam Date Time Temp Pulse Resp B/P (MAP) Pulse Ox O2 Delivery O2 Flow Rate FiO2 10/15/17 07:50 36.3 62 18 142/70 (94) 98 Room Air 10/15/17 00:30 Room Air 10/14/17 23:12 36.2 75 18 115/68 (84) 97 Room Air 10/14/17 20:07 98 Room Air 10/14/17 19:30 98 Room Air 10/14/17 19:15 36.2 59 16 139/72 (94) 98 Room Air 10/14/17 18:35 63 14 149/68 98 Room Air 10/14/17 17:25 61 10/14/17 16:35 61 20 162/79 98 Room Air 10/14/17 14:38 36.4 68 18 139/66 98 Room Air 10/14/17 14:17 62 NAD RUE NVSI +M/R/U/AIN/PIN, SILT grossly, +2 radial pulse, +ecchymosis, skin intact. compartments soft NT Laboratory Results Last 24 Hours Test 10/14/17 14:45 10/14/17 15:50 10/14/17 15:55 10/14/17 16:14 Creatine Kinase MB Ratio White Blood Count 5.38 K/uL Red Blood Count 3.62 M/uL Hemoglobin 11.6 g/dL Hematocrit 35.9 % Mean Corpuscular Volume 99.2 fL Mean Corpuscular Hemoglobin 32.0 pg Mean Corpuscular Hemoglobin Concent 32.3 g/dl Platelet Count 227 K/uL Mean Platelet Volume 9.3 fL Neutrophils (%) (Auto) 76.4 % Lymphocytes (%) (Auto) 12.8 % Monocytes (%) (Auto) 8.4 % Eosinophils (%) (Auto) 1.5 % Basophils (%) (Auto) 0.2 % Neutrophils # (Auto) 4.11 K/uL Lymphocytes # (Auto) 0.69 K/uL Monocytes # (Auto) 0.45 K/uL Eosinophils # (Auto) 0.08 K/uL Basophils # (Auto) 0.01 K/uL RDW Standard Deviation 51.0 fL RDW Coefficient of Variation 14.3 % Immature Granulocyte % (Auto) 0.7 % Immature Granulocyte # (Auto) 0.04 K/uL Prothrombin Time 9.9 SECONDS Prothromb Time International Ratio 0.9 Activated Partial Thromboplast Time 26.6 SECONDS Partial Thromboplastin Ratio 1.0 Sodium Level 139 mmol/L Potassium Level mmol/L Chloride Level 105 mmol/L Carbon Dioxide Level 29 mmol/L Anion Gap 5.0 mmol/L Blood Urea Nitrogen 18 mg/dl Creatinine 0.90 mg/dl Est Creatinine Clear Calc Drug Dose 45.3 ml/min Estimated GFR () 69.0 Estimated GFR (Non- 59.5 BUN/Creatinine Ratio 19.4 Random Glucose 85 mg/dl Calcium Level 8.7 mg/dl Total Bilirubin 0.7 mg/dl Direct Bilirubin mg/dl Aspartate Amino Transf (AST/SGOT) U/L Alanine Aminotransferase (ALT/SGPT) 22 U/L Alkaline Phosphatase 88 U/L Total Creatine Kinase U/L Creatine Kinase MB 2.2 ng/ml Total Protein 6.5 gm/dl Albumin 2.6 gm/dl Lipase 237 U/L Thyroid Stimulating Hormone (TSH) 14.600 uIu/ml Bedside Troponin I < 0.030 ng/ml Urine Color YELLOW Urine Appearance CLOUDY Urine pH 7.5 Urine Specific Agar 1.014 Urine Protein NEG Urine Glucose (UA) NEG Urine Ketones NEG Urine Occult Blood TRACE Urine Nitrite POS Urine Bilirubin NEG Urine Urobilinogen NEG Urine Leukocyte Esterase LARGE Urine WBC (Auto) >30 /hpf Urine RBC (Auto) 5-10 /hpf Urine Hyaline Casts (Auto) 1-5 /lpf Urine Epithelial Cells (Auto) 5-10 /lpf Urine Bacteria (Auto) 4+ Test 10/14/17 16:57 10/15/17 07:20 Potassium Level 4.3 mmol/L 4.1 mmol/L Direct Bilirubin 0.2 mg/dl Aspartate Amino Transf (AST/SGOT) 10 U/L Total Creatine Kinase 30 U/L White Blood Count 4.56 K/uL Red Blood Count 3.37 M/uL Hemoglobin 10.6 g/dL Hematocrit 33.5 % Mean Corpuscular Volume 99.4 fL Mean Corpuscular Hemoglobin 31.5 pg Mean Corpuscular Hemoglobin Concent 31.6 g/dl RDW Standard Deviation 51.6 fL RDW Coefficient of Variation 14.3 % Platelet Count 210 K/uL Mean Platelet Volume 9.0 fL Sodium Level 143 mmol/L Chloride Level 109 mmol/L Carbon Dioxide Level 27 mmol/L Anion Gap 6.0 mmol/L Blood Urea Nitrogen 18 mg/dl Creatinine 0.78 mg/dl Est Creatinine Clear Calc Drug Dose 54.1 ml/min Estimated GFR () 82.1 Estimated GFR (Non- 70.8 BUN/Creatinine Ratio 23.3 Random Glucose 76 mg/dl Calcium Level 8.3 mg/dl Assessment & Plan Nondisplaced right distal radius fracture with intra-articular extension. acute vs subacute -NWB RUE -PT/OT -ICE/elevation -Pain controlled -Well padded short fiberglass cast applied to R wrist -Sling -PO cast application XR - pending R WRIST MIN 3 VIEWS ROUTINE CLINICAL HISTORY: Right wrist pain following fall. COMPARISON: None FINDINGS: Note is made of an acute minimally displaced right radial fracture with intra-articular extension. There is no distal right ulnar fracture. Chondrocalcinosis is noted. There is marked joint space narrowing within the right wrist. IMPRESSION: 1. Acute minimally displaced distal right radial fracture with intra-articular extension. 2. 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 R KNEE 3 VIEWS CLINICAL HISTORY: Right knee pain status post trauma COMPARISON: None. DISCUSSION: There are postsurgical changes of a total right knee arthroplasty. No acute fractures or dislocations are visualized. The bones are osteopenic. IMPRESSION: Postsurgical change. No acute fractures. R HIP UNILATERAL 2 VIEWS CLINICAL HISTORY: Right hip pain status post trauma COMPARISON: None. DISCUSSION: The bones are osteopenic. No acute fractures or dislocations are visualized. There are mild osteoarthritic changes. IMPRESSION: No acute fractures or dislocations identified.
--- NOTE | 2017-10-15 12:11 | DIAGNOSTIC IMAGING REPORT ---
R WRIST MIN 3 VIEWS ROUTINE CLINICAL HISTORY: 82 years-old Female presenting with splint removal and cast application. TECHNIQUE: Frontal, bilateral oblique, and lateral views of the right wrist were obtained. COMPARISON: 10/14/2017. FINDINGS: Interval placement of a fiberglass cast, which obscures underlying osseous detail. Redemonstration of the cortical deformity of the distal radial metaphysis consistent with fracture. No malalignment. Osteopenia suspected. Partially visualized degenerative change at the carpus. IMPRESSION: Fiberglas casting of the distal radial metaphysis fracture. Electronically signed by: Jose Shen M.D. 10/15/2017 12:10 PM Dictated Date/Time: 10/15/2017 12:09 PM
[2017-10-15 15:20] VITALS: BP 112/68; PULSE 67; TEMP 36.5; O2SAT 98
[2017-10-15 16:56] VITALS: O2SAT 98
--- NOTE | 2017-10-15 17:59 | Progress Note ---
Medicine Progress Note Date & Time of Visit: Oct 15, 2017 at 10:55. Subjective 82-year-old female presents with a fall resulting in right wrist pain. Workup in the ER revealed a right wrist fracture. Patient denies any right knee pain but does report some chronic left hip pain. The patient reports that she slid down off of her bed and landed on her wrist. She otherwise denies any symptoms of belly pain diarrhea, fevers, chills, chest pain, trouble breathing. She is alert and somewhat appropriate but apparently confused from some recent pain medication that she took. She reports the pain medication is controlling her pain at her wrist. She was seen by orthopedics this morning and had a cast placed. Objective Last 8 Hrs Date Time Temp Pulse Resp B/P (MAP) Pulse Ox O2 Delivery O2 Flow Rate FiO2 10/15/17 07:50 36.3 62 18 142/70 (94) 98 Room Air Physical Exam: GEN: WNWD, in no acute distress, alert and appropriate HEENT: NC/AT, normal sclerae CARDIO: reg rate, S1/2 heard without m/g/r LUNGS: CTA bilaterally, no crackles, rales or wheezes, good diaphragmatic excursion ABD: soft, non-tender, non-distended, no rebound or guarding, +BS EXTREMITY: RP and DP palpable 2+ bilat, no LE swelling or edema, extremities are warm and well-perfused,RUE-hard cast on wrist and distal forearm. NVI NEURO: CN 2-12 grossly intact, no gross focal deficits. MUSC: Moves all extremities equally SKIN: warm and dry Laboratory Results: 10/15/17 07:20 10/15/17 07:20 Test 10/14/17 14:45 10/14/17 15:50 10/14/17 15:55 10/14/17 16:14 Creatine Kinase MB Ratio (0-3.0) Immature Granulocyte % (Auto) 0.7 % White Blood Count 5.38 K/uL (4.8-10.8) Red Blood Count 3.62 M/uL (4.2-5.4) Hemoglobin 11.6 g/dL (12.0-16.0) Hematocrit 35.9 % (37-47) Mean Corpuscular Volume 99.2 fL (80-100) Mean Corpuscular Hemoglobin 32.0 pg (25-34) Mean Corpuscular Hemoglobin Concent 32.3 g/dl (32-36) Platelet Count 227 K/uL (130-400) Mean Platelet Volume 9.3 fL (7.4-10.4) Neutrophils (%) (Auto) 76.4 % Lymphocytes (%) (Auto) 12.8 % Monocytes (%) (Auto) 8.4 % Eosinophils (%) (Auto) 1.5 % Basophils (%) (Auto) 0.2 % Neutrophils # (Auto) 4.11 K/uL (1.4-6.5) Lymphocytes # (Auto) 0.69 K/uL (1.2-3.4) Monocytes # (Auto) 0.45 K/uL (0.11-0.59) Eosinophils # (Auto) 0.08 K/uL (0-0.5) Basophils # (Auto) 0.01 K/uL (0-0.2) Immature Granulocyte # (Auto) 0.04 K/uL (0.00-0.02) Prothrombin Time 9.9 SECONDS (9.0-12.0) Prothromb Time International Ratio 0.9 (0.9-1.1) Activated Partial Thromboplast Time 26.6 SECONDS (21.0-31.0) Partial Thromboplastin Ratio 1.0 Total Bilirubin 0.7 mg/dl (0.2-1) Alanine Aminotransferase (ALT/SGPT) 22 U/L (12-78) Alkaline Phosphatase 88 U/L (45-117) Creatine Kinase MB 2.2 ng/ml (0.5-3.6) Total Protein 6.5 gm/dl (6.4-8.2) Albumin 2.6 gm/dl (3.4-5.0) Lipase 237 U/L (73-393) Thyroid Stimulating Hormone (TSH) 14.600 uIu/ml (0.300-4.500) Bedside Troponin I < 0.030 ng/ml (0-0.045) Urine Color YELLOW Urine Appearance CLOUDY (CLEAR) Urine pH 7.5 (4.5-7.5) Urine Specific [place] 1.014 (1.000-1.030) Urine Protein NEG (NEG) Urine Glucose (UA) NEG (NEG) Urine Ketones NEG (NEG) Urine Occult Blood TRACE (NEG) Urine Nitrite POS (NEG) Urine Bilirubin NEG (NEG) Urine Urobilinogen NEG (NEG) Urine Leukocyte Esterase LARGE (NEG) Urine WBC (Auto) >30 /hpf (0-5) Urine RBC (Auto) 5-10 /hpf (0-4) Urine Hyaline Casts (Auto) 1-5 /lpf (0-5) Urine Epithelial Cells (Auto) 5-10 /lpf (0-5) Urine Bacteria (Auto) 4+ (NEG) Test 10/14/17 16:57 10/15/17 07:20 Direct Bilirubin 0.2 mg/dl (0-0.2) Aspartate Amino Transf (AST/SGOT) 10 U/L (15-37) Total Creatine Kinase 30 U/L (26-192) Red Blood Count 3.37 M/uL (4.2-5.4) Mean Corpuscular Volume 99.4 fL (80-100) Mean Corpuscular Hemoglobin 31.5 pg (25-34) Mean Corpuscular Hemoglobin Concent 31.6 g/dl (32-36) RDW Standard Deviation 51.6 fL (36.4-46.3) RDW Coefficient of Variation 14.3 % (11.5-14.5) Mean Platelet Volume 9.0 fL (7.4-10.4) Anion Gap 6.0 mmol/L (3-11) Est Creatinine Clear Calc Drug Dose 54.1 ml/min Estimated GFR () 82.1 Estimated GFR (Non- 70.8 BUN/Creatinine Ratio 23.3 (10-20) Calcium Level 8.3 mg/dl (8.5-10.1) Date/Time Source Procedure Growth Status 10/14/17 21:29 Nasal MRSA DNA Surveillance Screen - Final Specimen Negative for MRSA by DNA Probe Complete 10/14/17 16:14 Urine,Catheterized Urine Culture - Preliminary Gram Negative Bacilli Resulted Last 24 Hours Test 10/14/17 14:45 10/14/17 15:50 10/14/17 15:55 10/14/17 16:14 Creatine Kinase MB Ratio White Blood Count 5.38 K/uL Red Blood Count 3.62 M/uL Hemoglobin 11.6 g/dL Hematocrit 35.9 % Mean Corpuscular Volume 99.2 fL Mean Corpuscular Hemoglobin 32.0 pg Mean Corpuscular Hemoglobin Concent 32.3 g/dl Platelet Count 227 K/uL Mean Platelet Volume 9.3 fL Neutrophils (%) (Auto) 76.4 % Lymphocytes (%) (Auto) 12.8 % Monocytes (%) (Auto) 8.4 % Eosinophils (%) (Auto) 1.5 % Basophils (%) (Auto) 0.2 % Neutrophils # (Auto) 4.11 K/uL Lymphocytes # (Auto) 0.69 K/uL Monocytes # (Auto) 0.45 K/uL Eosinophils # (Auto) 0.08 K/uL Basophils # (Auto) 0.01 K/uL RDW Standard Deviation 51.0 fL RDW Coefficient of Variation 14.3 % Immature Granulocyte % (Auto) 0.7 % Immature Granulocyte # (Auto) 0.04 K/uL Prothrombin Time 9.9 SECONDS Prothromb Time International Ratio 0.9 Activated Partial Thromboplast Time 26.6 SECONDS Partial Thromboplastin Ratio 1.0 Sodium Level 139 mmol/L Potassium Level mmol/L Chloride Level 105 mmol/L Carbon Dioxide Level 29 mmol/L Anion Gap 5.0 mmol/L Blood Urea Nitrogen 18 mg/dl Creatinine 0.90 mg/dl Est Creatinine Clear Calc Drug Dose 45.3 ml/min Estimated GFR () 69.0 Estimated GFR (Non- 59.5 BUN/Creatinine Ratio 19.4 Random Glucose 85 mg/dl Calcium Level 8.7 mg/dl Total Bilirubin 0.7 mg/dl Direct Bilirubin mg/dl Aspartate Amino Transf (AST/SGOT) U/L Alanine Aminotransferase (ALT/SGPT) 22 U/L Alkaline Phosphatase 88 U/L Total Creatine Kinase U/L Creatine Kinase MB 2.2 ng/ml Total Protein 6.5 gm/dl Albumin 2.6 gm/dl Lipase 237 U/L Thyroid Stimulating Hormone (TSH) 14.600 uIu/ml Bedside Troponin I < 0.030 ng/ml Urine Color YELLOW Urine Appearance CLOUDY Urine pH 7.5 Urine Specific [place] 1.014 Urine Protein NEG Urine Glucose (UA) NEG Urine Ketones NEG Urine Occult Blood TRACE Urine Nitrite POS Urine Bilirubin NEG Urine Urobilinogen NEG Urine Leukocyte Esterase LARGE Urine WBC (Auto) >30 /hpf Urine RBC (Auto) 5-10 /hpf Urine Hyaline Casts (Auto) 1-5 /lpf Urine Epithelial Cells (Auto) 5-10 /lpf Urine Bacteria (Auto) 4+ Test 10/14/17 16:57 4/7/18 07:20 Potassium Level 4.3 mmol/L 4.1 mmol/L Direct Bilirubin 0.2 mg/dl Aspartate Amino Transf (AST/SGOT) 10 U/L Total Creatine Kinase 30 U/L White Blood Count 4.56 K/uL Red Blood Count 3.37 M/uL Hemoglobin 10.6 g/dL Hematocrit 33.5 % Mean Corpuscular Volume 99.4 fL Mean Corpuscular Hemoglobin 31.5 pg Mean Corpuscular Hemoglobin Concent 31.6 g/dl RDW Standard Deviation 51.6 fL RDW Coefficient of Variation 14.3 % Platelet Count 210 K/uL Mean Platelet Volume 9.0 fL Sodium Level 143 mmol/L Chloride Level 109 mmol/L Carbon Dioxide Level 27 mmol/L Anion Gap 6.0 mmol/L Blood Urea Nitrogen 18 mg/dl Creatinine 0.78 mg/dl Est Creatinine Clear Calc Drug Dose 54.1 ml/min Estimated GFR () 82.1 Estimated GFR (Non- 70.8 BUN/Creatinine Ratio 23.3 Random Glucose 76 mg/dl Calcium Level 8.3 mg/dl Date/Time Source Procedure Growth Status 10/14/17 21:29 Nasal MRSA DNA Surveillance Screen - Final Specimen Negative for MRSA by DNA Probe Complete 10/14/17 16:14 Urine,Catheterized Urine Culture - Preliminary Gram Negative Bacilli Resulted Assessment & Plan 82-year-old female presents with a fall resulting in right wrist pain. Workup in the ER revealed a right wrist fracture. Patient denies any right knee pain but does report some chronic left hip pain. The patient reports that she slid down off of her bed and landed on her wrist. She otherwise denies any symptoms of belly pain diarrhea, fevers, chills, chest pain, trouble breathing. She is alert and somewhat appropriate but apparently confused from some recent pain medication that she took. She reports the pain medication is controlling her pain at her wrist. She was seen by orthopedics this morning and had a cast placed. 1. Right wrist fracture-casted by orthopedics with supportive care. No surgery indicated at this time. Follow-up per Orth O. Continue tramadol for pain. 2. Ambulatory dysfunction with a history of frequent falls-PT/OT assessment. 3. Acute cystitis-patient denies any symptoms at this time. Continued cefepime pending culture results. No evidence of sepsis at this time. 4. C. difficile infection-recent diagnosis, continue vancomycin p.o. 4 times daily for additional 3-7 days. Continue Florastor. 5. Hypothyroidism- TSH is 14 on admission which is improved from greater than 30 last week, continue levothyroxine with outpatient follow-up. 6. Dementia-patient is at reported baseline per correction staff and is alert and appropriate. Continue donepezil. Patient lives at [facility] 7. History of protein calorie malnutrition-continue boost supplementation. Nutrition consult 8. Sacral wound-wound nurse consult, appreciate Recs 9. Anemia-likely secondary to phlebotomy during this hospitalization. Patient did report some trace bright red blood on her tissue paper with wiping yesterday but reports this was a one-time occurrence and she does have a history of hemorrhoids. Will continue to monitor. No acute indication for transfusion at this time. DVT Prophylaxis-Lovenox Full code Disposition-will be hospitalized likely till Tuesday. Pending PT/OT evaluations Demetrice Arshad DO [facility] hospitalist Consultants: Orthopedics- Current Inpatient Medications: Current Inpatient Medications Medications (Trade) Dose Ordered Sig/Nora Route Start Time Stop Time Status Last Admin Dose Admin Acetaminophen (Tylenol Tab) 650 mg Q4H PRN PO 10/14/17 18:30 11/13/17 18:29 Magnesium Hydroxide (Milk Of Magnesia Susp) 30 ml Q6H PRN PO 10/14/17 18:30 11/13/17 18:29 Ondansetron HCl (Zofran Inj) 4 mg Q6H PRN IV 10/14/17 18:30 11/13/17 18:29 Furosemide (Lasix Tab) 20 mg DAILY PO 10/15/17 09:00 11/14/17 08:59 10/15/17 09:00 20 MG Levothyroxine Sodium (Synthroid Tab) 100 mcg DAILYBB PO 10/15/17 06:00 11/14/17 06:59 10/15/17 06:23 100 MCG Magnesium Oxide (Mag-Ox Tab) 800 mg BID PO 10/14/17 21:00 11/13/17 20:59 10/15/17 09:00 800 MG Risperidone (Risperdal Tab) 0.5 mg DAILY PO 10/15/17 09:00 11/14/17 08:59 10/15/17 09:01 0.5 MG Saccharomyces Boulardii (Florastor Cap) 250 mg BID PO 10/14/17 21:00 11/13/17 20:59 10/15/17 09:00 250 MG Tramadol HCl (Ultram Tab) 50 mg Q6 PRN PO 10/14/17 18:45 11/13/17 18:44 10/15/17 08:08 50 MG Vancomycin HCl (Vancomycin Oral Soln) 125 mg QID PO 10/14/17 21:00 10/17/17 23:00 10/15/17 09:01 125 MG Cholecalciferol (Vitamin D Tab) 2,000 inter.unit DAILY PO 10/15/17 09:00 11/14/17 08:59 10/15/17 08:59 2,000 INTER.UNIT Donepezil HCl (Aricept Tab) 5 mg DAILY PO 10/15/17 09:00 11/14/17 08:59 10/15/17 08:58 5 MG Ferrous Sulfate (Feosol Tab) 325 mg DAILY PO 10/15/17 09:00 11/14/17 08:59 10/15/17 08:59 325 MG Pantoprazole Sodium (Protonix Tab) 40 mg DAILY PO 10/15/17 09:00 11/14/17 08:59 10/15/17 09:01 40 MG Enoxaparin Sodium (Lovenox Inj) 30 mg Q12 SQ 10/14/17 21:00 11/13/17 20:59 10/15/17 09:02 30 MG Enteral Nutritional Formula (Boost) 1 can DAILY PO 10/15/17 09:00 11/14/17 08:59 10/15/17 08:55 1 CAN Raspberry (Raspberry Syrup 5ml Cup) 5 ml QID PO 10/14/17 21:00 10/28/17 20:59 10/15/17 09:01 5 ML Cefepime HCl 1000 mg/Syringe 11 ml @ 5.5 mls/min Q24H IV 10/14/17 20:00 10/19/17 19:59 10/14/17 21:24 5.5 MLS/MIN Miscellaneous (Iv Fluids Completed) 1 ea PRN PRN N/A 10/14/17 21:30 10/14/18 21:29
[2017-10-15] MEDS: CEFEPIME IV 1,000 MG in SYRINGE 0 ML IV SCH (19:32)
[2017-10-15 23:20] VITALS: BP 113/63; PULSE 72; TEMP 36.7; O2SAT 97
[2017-10-16] MEDS: LEVOTHYROXINE 100 MCG TAB PO SCH (06:29)
[2017-10-16 07:11] LABS: HEMATOCRIT 33.9 % (37-47); MEAN CELL VOLUME 98.3 fL (80-100); MEAN CORPUSCULAR HEMOGLOBIN 31.9 pg (25-34); MEAN CORPUSCULAR HGB CONC 32.4 g/dl (32-36); MEAN PLATELET VOLUME 8.8 fL (7.4-10.4); PLATELET COUNT 233 K/uL (130-400); RED CELL DISTRIBUTION WIDTH CV 14.3 % (11.5-14.5); RED CELL DISTRIBUTION WIDTH SD 51.2 fL (36.4-46.3); WHITE BLOOD COUNT 7.11 K/uL (4.8-10.8)
[2017-10-16 07:20] VITALS: BP 117/67; PULSE 69; TEMP 36.7; O2SAT 95
--- NOTE | 2017-10-16 08:40 | Orthopedic Progress Note ---
Orthopedic Progress Note Date of Service Oct 16, 2017. Subjective Denies: complaints, chest pain, SOB, nausea / vomiting, light headedness, calf pain Additional Notes: Patient was very tired on exam today. She had no complaints. Objective splint C/D/I, capillary refill less than 2 sec., A&O x3, toes mobile Patient had good sensation in her right fingers. She was able to move them as well. She denied numbness or tingling. Cast was in good placement without any restrictions. Date Time Temp Pulse Resp B/P (MAP) Pulse Ox O2 Delivery O2 Flow Rate FiO2 10/16/17 07:20 36.7 69 17 117/67 (84) 95 Room Air 10/15/17 23:55 Room Air 10/15/17 23:20 36.7 72 14 113/63 (80) 97 Room Air 10/15/17 16:56 98 Room Air 10/15/17 15:20 36.5 67 20 112/68 (83) 98 Room Air Laboratory Results 24 Hours: Test 10/16/17 06:57 Hematocrit 33.9 % Hemoglobin 11.0 g/dL Assessment & Plan Assessment: Right distal radius fracture Plan: Cast appears to be intact and not constricting. She has good sensation in her fingers and they are mobile. She will remain in the cast for 6 weeks.
[2017-10-16] MEDS: CHOLECALCIFEROL 1000 INTER.UNIT TAB PO SCH (10:17)
[2017-10-16] MEDS: DONEPEZIL HCL 5 MG TAB PO SCH (10:17)
[2017-10-16] MEDS: FERROUS SULFATE 325 MG TAB PO SCH (10:17)
[2017-10-16] MEDS: RISPERIDONE 0.5 MG TAB PO SCH (10:18)
[2017-10-16] MEDS: PANTOprazole SOD 40 MG TAB PO SCH (10:18)
[2017-10-16] MEDS: MAGNESIUM OXIDE 400 MG TAB PO SCH ×2 (10:18→20:32)
[2017-10-16] MEDS: SACCHAROMYCES BOUL (FLORASTOR) 250 MG CAP PO SCH ×2 (10:19→20:32)
[2017-10-16] MEDS: FUROSEMIDE 20 MG TAB PO SCH (10:19)
[2017-10-16] MEDS: RASPBERRY SYRUP 5 ML UDP PO SCH ×4 (10:20→20:32)
[2017-10-16] MEDS: ENOXAPARIN 30 MG/0.3 ML SYR SQ SCH ×2 (10:20→20:32)
[2017-10-16] MEDS: VANCOMYCIN HCL 125 MG/2.5ML SOLN PO SCH ×4 (10:21→20:32)
[2017-10-16] MEDS: BOOST VANILLA PO SCH (14:29)
[2017-10-16 15:20] VITALS: BP 90/52; PULSE 77; TEMP 36.4; O2SAT 95
[2017-10-16 16:00] VITALS: O2SAT 95
[2017-10-16] MEDS: CEFEPIME IV 1,000 MG in SYRINGE 0 ML IV SCH (20:01)
--- NOTE | 2017-10-16 21:42 | Progress Note ---
Medicine Progress Note Date & Time of Visit: Oct 16, 2017 at 1100. Subjective 82-year-old female presents with right wrist fracture. She reports having a good night except states that she feels some inner L thigh pain in her muscles like a strain. She is tolerating PO and is doing well overall without symptoms. Pain is controlled. Reports having diarrhea overnight but denies abdominal pain. Objective Last 8 Hrs Date Time Temp Pulse Resp B/P (MAP) Pulse Ox O2 Delivery O2 Flow Rate FiO2 10/16/17 16:00 95 Room Air 10/16/17 15:20 36.4 77 17 90/52 (65) 95 Room Air Physical Exam: GEN: WNWD, in no acute distress, alert and appropriate, sitting in chair at bedside HEENT: NC/AT, normal sclerae CARDIO: reg rate, S1/2 heard without m/g/r LUNGS: CTA bilaterally, no crackles, rales or wheezes, good diaphragmatic excursion ABD: soft, non-tender, non-distended, no rebound or guarding, +BS EXTREMITY: RP and DP palpable 2+ bilat, no LE swelling or edema, extremities are warm and well-perfused,RUE-hard cast on wrist and distal forearm. NVI NEURO: CN 2-12 grossly intact, no gross focal deficits. MUSC: Moves all extremities equally SKIN: warm and dry Laboratory Results: 10/16/17 06:57 10/15/17 07:20 Test 10/14/17 14:45 10/14/17 15:50 10/14/17 15:55 10/14/17 16:14 Creatine Kinase MB Ratio (0-3.0) Immature Granulocyte % (Auto) 0.7 % White Blood Count 5.38 K/uL (4.8-10.8) Red Blood Count 3.62 M/uL (4.2-5.4) Hemoglobin 11.6 g/dL (12.0-16.0) Hematocrit 35.9 % (37-47) Mean Corpuscular Volume 99.2 fL (80-100) Mean Corpuscular Hemoglobin 32.0 pg (25-34) Mean Corpuscular Hemoglobin Concent 32.3 g/dl (32-36) Platelet Count 227 K/uL (130-400) Mean Platelet Volume 9.3 fL (7.4-10.4) Neutrophils (%) (Auto) 76.4 % Lymphocytes (%) (Auto) 12.8 % Monocytes (%) (Auto) 8.4 % Eosinophils (%) (Auto) 1.5 % Basophils (%) (Auto) 0.2 % Neutrophils # (Auto) 4.11 K/uL (1.4-6.5) Lymphocytes # (Auto) 0.69 K/uL (1.2-3.4) Monocytes # (Auto) 0.45 K/uL (0.11-0.59) Eosinophils # (Auto) 0.08 K/uL (0-0.5) Basophils # (Auto) 0.01 K/uL (0-0.2) Immature Granulocyte # (Auto) 0.04 K/uL (0.00-0.02) Prothrombin Time 9.9 SECONDS (9.0-12.0) Prothromb Time International Ratio 0.9 (0.9-1.1) Activated Partial Thromboplast Time 26.6 SECONDS (21.0-31.0) Partial Thromboplastin Ratio 1.0 Total Bilirubin 0.7 mg/dl (0.2-1) Alanine Aminotransferase (ALT/SGPT) 22 U/L (12-78) Alkaline Phosphatase 88 U/L (45-117) Creatine Kinase MB 2.2 ng/ml (0.5-3.6) Total Protein 6.5 gm/dl (6.4-8.2) Albumin 2.6 gm/dl (3.4-5.0) Lipase 237 U/L (73-393) Thyroid Stimulating Hormone (TSH) 14.600 uIu/ml (0.300-4.500) Bedside Troponin I < 0.030 ng/ml (0-0.045) Urine Color YELLOW Urine Appearance CLOUDY (CLEAR) Urine pH 7.5 (4.5-7.5) Urine Specific [place] 1.014 (1.000-1.030) Urine Protein NEG (NEG) Urine Glucose (UA) NEG (NEG) Urine Ketones NEG (NEG) Urine Occult Blood TRACE (NEG) Urine Nitrite POS (NEG) Urine Bilirubin NEG (NEG) Urine Urobilinogen NEG (NEG) Urine Leukocyte Esterase LARGE (NEG) Urine WBC (Auto) >30 /hpf (0-5) Urine RBC (Auto) 5-10 /hpf (0-4) Urine Hyaline Casts (Auto) 1-5 /lpf (0-5) Urine Epithelial Cells (Auto) 5-10 /lpf (0-5) Urine Bacteria (Auto) 4+ (NEG) Test 10/14/17 16:57 10/15/17 07:20 10/16/17 06:57 Direct Bilirubin 0.2 mg/dl (0-0.2) Aspartate Amino Transf (AST/SGOT) 10 U/L (15-37) Total Creatine Kinase 30 U/L (26-192) Anion Gap 6.0 mmol/L (3-11) Est Creatinine Clear Calc Drug Dose 54.1 ml/min Estimated GFR () 82.1 Estimated GFR (Non- 70.8 BUN/Creatinine Ratio 23.3 (10-20) Calcium Level 8.3 mg/dl (8.5-10.1) Red Blood Count 3.45 M/uL (4.2-5.4) Mean Corpuscular Volume 98.3 fL (80-100) Mean Corpuscular Hemoglobin 31.9 pg (25-34) Mean Corpuscular Hemoglobin Concent 32.4 g/dl (32-36) RDW Standard Deviation 51.2 fL (36.4-46.3) RDW Coefficient of Variation 14.3 % (11.5-14.5) Mean Platelet Volume 8.8 fL (7.4-10.4) Date/Time Source Procedure Growth Status 10/14/17 21:29 Nasal MRSA DNA Surveillance Screen - Final Specimen Negative for MRSA by DNA Probe Complete 10/14/17 16:14 Urine,Catheterized Urine Culture - Preliminary Gram Negative Bacilli Resulted Last 24 Hours Test 10/16/17 06:57 White Blood Count 7.11 K/uL Red Blood Count 3.45 M/uL Hemoglobin 11.0 g/dL Hematocrit 33.9 % Mean Corpuscular Volume 98.3 fL Mean Corpuscular Hemoglobin 31.9 pg Mean Corpuscular Hemoglobin Concent 32.4 g/dl RDW Standard Deviation 51.2 fL RDW Coefficient of Variation 14.3 % Platelet Count 233 K/uL Mean Platelet Volume 8.8 fL Assessment & Plan 82-year-old female presents with right wrist fracture. She reports having a good night except states that she feels some inner L thigh pain in her muscles like a strain. She is tolerating PO and is doing well overall without symptoms. Pain is controlled. Reports having diarrhea overnight but denies abdominal pain. 1. Right wrist fracture-casted by orthopedics with supportive care. No surgery indicated at this time. Follow-up per Orth O. Continue tramadol for pain. 2. Ambulatory dysfunction with a history of frequent falls-PT/OT assessment. 3. Acute cystitis-patient denies any symptoms at this time. Continued cefepime pending culture results. No evidence of sepsis at this time. 4. C. difficile infection-recent diagnosis, continue vancomycin p.o. 4 times daily to complete her 14 day course. Continue Florastor. 5. Hypothyroidism- TSH is 14 on admission which is improved from greater than 30 last week, continue levothyroxine with outpatient follow-up. 6. Dementia-patient is at reported baseline per [facility] staff and is alert and appropriate. Continue donepezil. Patient lives at [facility] 7. History of protein calorie malnutrition-continue boost supplementation. Nutrition consult 8. Sacral wound-wound nurse consult, appreciate Recs 9. Anemia-likely secondary to phlebotomy during this hospitalization. Patient did report some trace bright red blood on her tissue paper with wiping yesterday but reports this was a one-time occurrence and she does have a history of hemorrhoids. Will continue to monitor. No acute indication for transfusion at this time. DVT Prophylaxis-Lovenox Full code Disposition-will be hospitalized likely till Tuesday. PT [facility] Consultants: Orthopedics- Current Inpatient Medications: Current Inpatient Medications Medications (Trade) Dose Ordered Sig/Nora Route Start Time Stop Time Status Last Admin Dose Admin Acetaminophen (Tylenol Tab) 650 mg Q4H PRN PO 10/14/17 18:30 11/13/17 18:29 Magnesium Hydroxide (Milk Of Magnesia Susp) 30 ml Q6H PRN PO 10/14/17 18:30 11/13/17 18:29 Ondansetron HCl (Zofran Inj) 4 mg Q6H PRN IV 10/14/17 18:30 11/13/17 18:29 Furosemide (Lasix Tab) 20 mg DAILY PO 10/15/17 09:00 11/14/17 08:59 10/16/17 10:19 20 MG Levothyroxine Sodium (Synthroid Tab) 100 mcg DAILYBB PO 10/15/17 06:00 11/14/17 06:59 10/16/17 06:29 100 MCG Magnesium Oxide (Mag-Ox Tab) 800 mg BID PO 10/14/17 21:00 11/13/17 20:59 10/16/17 20:32 800 MG Risperidone (Risperdal Tab) 0.5 mg DAILY PO 10/15/17 09:00 11/14/17 08:59 10/16/17 10:18 0.5 MG Saccharomyces Boulardii (Florastor Cap) 250 mg BID PO 10/14/17 21:00 11/13/17 20:59 10/16/17 20:32 250 MG Tramadol HCl (Ultram Tab) 50 mg Q6 PRN PO 10/14/17 18:45 11/13/17 18:44 10/15/17 08:08 50 MG Vancomycin HCl (Vancomycin Oral Soln) 125 mg QID PO 10/14/17 21:00 10/17/17 23:00 10/16/17 20:32 125 MG Cholecalciferol (Vitamin D Tab) 2,000 inter.unit DAILY PO 10/15/17 09:00 11/14/17 08:59 10/16/17 10:17 2,000 INTER.UNIT Donepezil HCl (Aricept Tab) 5 mg DAILY PO 10/15/17 09:00 11/14/17 08:59 10/16/17 10:17 5 MG Ferrous Sulfate (Feosol Tab) 325 mg DAILY PO 10/15/17 09:00 11/14/17 08:59 10/16/17 10:17 325 MG Pantoprazole Sodium (Protonix Tab) 40 mg DAILY PO 10/15/17 09:00 11/14/17 08:59 10/16/17 10:18 40 MG Enoxaparin Sodium (Lovenox Inj) 30 mg Q12 SQ 10/14/17 21:00 11/13/17 20:59 10/16/17 20:32 30 MG Enteral Nutritional Formula (Boost) 1 can DAILY PO 10/15/17 09:00 11/14/17 08:59 10/16/17 14:29 1 CAN Raspberry (Raspberry Syrup 5ml Cup) 5 ml QID PO 10/14/17 21:00 10/28/17 20:59 10/16/17 20:32 5 ML Cefepime HCl 1000 mg/Syringe 11 ml @ 5.5 mls/min Q24H IV 10/14/17 20:00 10/19/17 19:59 10/16/17 20:01 5.5 MLS/MIN Miscellaneous (Iv Fluids Completed) 1 ea PRN PRN N/A 10/14/17 21:30 10/14/18 21:29
[2017-10-16 22:55] VITALS: BP 92/56; PULSE 73; TEMP 36.5; O2SAT 92
[2017-10-17] MEDS: LEVOTHYROXINE 100 MCG TAB PO SCH (05:45)
[2017-10-17 07:47] VITALS: BP 108/55; PULSE 64; TEMP 36.3; O2SAT 95
[2017-10-17 07:50] VITALS: O2SAT 95
[2017-10-17] MEDS: ACETAMINOPHEN 325 MG TAB PO PRN ×2 (08:00→18:52)
[2017-10-17] MEDS: DONEPEZIL HCL 5 MG TAB PO SCH (08:52)
[2017-10-17] MEDS: FERROUS SULFATE 325 MG TAB PO SCH (08:52)
[2017-10-17] MEDS: CHOLECALCIFEROL 1000 INTER.UNIT TAB PO SCH (08:52)
[2017-10-17] MEDS: RISPERIDONE 0.5 MG TAB PO SCH (08:53)
[2017-10-17] MEDS: SACCHAROMYCES BOUL (FLORASTOR) 250 MG CAP PO SCH ×2 (08:53→22:11)
[2017-10-17] MEDS: PANTOprazole SOD 40 MG TAB PO SCH (08:53)
[2017-10-17] MEDS: FUROSEMIDE 20 MG TAB PO SCH (08:53)
[2017-10-17] MEDS: RASPBERRY SYRUP 5 ML UDP PO SCH ×4 (08:53→22:10)
[2017-10-17] MEDS: VANCOMYCIN HCL 125 MG/2.5ML SOLN PO SCH ×4 (08:53→22:10)
[2017-10-17] MEDS: MAGNESIUM OXIDE 400 MG TAB PO SCH ×2 (08:53→22:11)
[2017-10-17] MEDS: ENOXAPARIN 30 MG/0.3 ML SYR SQ SCH ×2 (08:54→22:11)
[2017-10-17] MEDS: BOOST VANILLA PO SCH (10:47)
--- NOTE | 2017-10-17 11:19 | Progress Note ---
Progress Note Date of Service Oct 17, 2017. Progress Note ID Consult Dictated #[id number] A/P: 1. UTI 2. C. diff -previoulsy diagnosed -will change to Ertapenem 1 g daily, would give 3 days, could use macrobid as po alternative -Continue po vanco as planned -thank you
[2017-10-17] MEDS: ERTAPENEM IV 1 GM in SODIUM CHLOR 0.9% AD-VAN 50ML 50 ML IV SCH (12:19)
--- NOTE | 2017-10-17 14:21 | INFECT. DISEASE CONSULTATION ---
DATE OF CONSULTATION: 10/17/2017 HISTORY OF PRESENT ILLNESS: This is an 82-year-old female who was admitted to the hospital after she suffered a fall at her local nursing facility. An x-ray of the right upper extremity did reveal a radial fracture. She is being followed by orthopedic surgery and there is no plan for surgery at this time. She was casted. On my exam today, she is out of bed to chair and states that her right arm pain is improving. She states she did just recently receive pain medication and she is feeling better after having received this. She does carry a history of dementia and her remaining history is somewhat limited. She recently was admitted to the hospital from 10/04/2017 through 10/07/2017 for change in mental status and at that time was diagnosed with urinary tract infection and C. diff colitis. She was discharged on oral Cipro and vancomycin. She remains on her oral vancomycin. She continues to complain of diarrhea, but states overall it is improving. She denies any abdominal pain. In the Emergency Room, she did have a repeat urinalysis which showed greater than 30 wbc's and 4+ bacteria. Urine culture from the 6th is growing citrobacter which is sensitive to ertapenem, imipenem and Macrobid. She has been afebrile since admission to the hospital. Infectious diseases was consulted for management of urinary tract infection. She has been on cefepime for this, but this isolate is cefepime resistant. She currently denies any urinary complaints. She does admit to a rash on her bilateral buttocks and lower back and to her inner thighs, which is itchy and somewhat painful. This was also noted by nursing staff as well and currently is being treated topically. Her remaining review of systems is unremarkable. PAST MEDICAL HISTORY: Significant for dementia, GERD, hypothyroidism and recently diagnosed C. diff diarrhea for which she has been on oral vancomycin. 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 FAMILY HISTORY: Noncontributory. SOCIAL HISTORY: Negative for tobacco use, alcohol use or drug use. She currently lives at a assisted facility. ALLERGIES: She has no known drug allergies. CURRENT MEDICATIONS: Lasix, risperidone, vitamin D, Aricept, iron, Protonix, Boost, Synthroid, magnesium, Florastor, oral vancomycin, Lovenox, cefepime, Ultram, Tylenol, milk of magnesia and Zofran. PHYSICAL EXAMINATION: VITAL SIGNS: She is afebrile, pulse 64, respiratory rate 18, blood pressure 108/55, oxygen saturation is 95% on room air. GENERAL: She is awake, alert. She is in no acute distress. HEENT: Mucous membranes are moist. Extraocular muscles are intact. HEART: Regular. LUNGS: Clear bilaterally. ABDOMEN: Soft and nondistended. There is no tenderness to palpation. There is trace lower extremity edema bilaterally. SKIN: Does show some excoriation over the lower lumbar spine and the buttock area. This does not spread on to the lateral thighs. There are no vesicular lesions. There is no bleeding or drainage. There is no warmth or tenderness to palpation of this area. LABORATORY STUDIES: CBC yesterday, white blood cell count 7.1, hemoglobin 11, platelets 233. Last chemistry panel on the 7th, sodium 143, potassium 4.1, chloride 109, bicarbonate 27, BUN 18, creatinine 0.7, glucose 76. LFTs were normal. On admission, TSH was 14.6. UA in the Emergency Room again had large leukocyte esterase, greater than 30 wbc's and +4 bacteria. A urine culture is growing citrobacter sensitive only to amikacin, ertapenem, imipenem and Macrobid. Chest x-ray in the ER was negative for infiltrate. ASSESSMENT AND PLAN: 1. Urinary tract infection. 2. Clostridium difficile diagnosed prior to this admission. At this time, she can be transitioned to ertapenem. I would give a 3-day course for this. Certainly p.o. antibiotics would be preferred, she could be transitioned to Macrobid to complete her course. She will continue her previously prescribed course of vancomycin for C. diff. I do not believe that the rash on her back is a drug eruption and certainly could be secondary to excoriated skin and irritation from prolonged diarrhea. Thank you for this consultation.
[2017-10-17 15:16] VITALS: BP 98/54; PULSE 66; TEMP 36.5; O2SAT 97
--- NOTE | 2017-10-17 23:20 | Progress Note ---
Medicine Progress Note Date & Time of Visit: Oct 17, 2017 at 14:32. Subjective 82-year-old female presents with right wrist fracture. She reports having a good night except states that she feels some inner L thigh pain in her muscles like a strain. She is tolerating PO and is doing well overall without symptoms. Pain is controlled. Reports having diarrhea overnight but denies abdominal pain. Objective Last 8 Hrs Date Time Temp Pulse Resp B/P (MAP) Pulse Ox O2 Delivery O2 Flow Rate FiO2 10/17/17 07:50 95 Room Air 10/17/17 07:47 36.3 64 18 108/55 (72) 95 Room Air 10/17/17 07:30 Room Air Physical Exam: GEN: WNWD, in no acute distress, alert and appropriate, sitting in chair at bedside HEENT: NC/AT, normal sclerae CARDIO: reg rate, S1/2 heard without m/g/r LUNGS: CTA bilaterally, no crackles, rales or wheezes, good diaphragmatic excursion ABD: soft, non-tender, non-distended, no rebound or guarding, +BS EXTREMITY: RP and DP palpable 2+ bilat, no LE swelling or edema, extremities are warm and well-perfused,RUE-hard cast on wrist and distal forearm. NVI NEURO: CN 2-12 grossly intact, no gross focal deficits. MUSC: Moves all extremities equally SKIN: warm and dry Laboratory Results: 10/16/17 06:57 10/15/17 07:20 Test 10/14/17 14:45 10/14/17 15:50 10/14/17 15:55 10/14/17 16:14 Creatine Kinase MB Ratio (0-3.0) Immature Granulocyte % (Auto) 0.7 % White Blood Count 5.38 K/uL (4.8-10.8) Red Blood Count 3.62 M/uL (4.2-5.4) Hemoglobin 11.6 g/dL (12.0-16.0) Hematocrit 35.9 % (37-47) Mean Corpuscular Volume 99.2 fL (80-100) Mean Corpuscular Hemoglobin 32.0 pg (25-34) Mean Corpuscular Hemoglobin Concent 32.3 g/dl (32-36) Platelet Count 227 K/uL (130-400) Mean Platelet Volume 9.3 fL (7.4-10.4) Neutrophils (%) (Auto) 76.4 % Lymphocytes (%) (Auto) 12.8 % Monocytes (%) (Auto) 8.4 % Eosinophils (%) (Auto) 1.5 % Basophils (%) (Auto) 0.2 % Neutrophils # (Auto) 4.11 K/uL (1.4-6.5) Lymphocytes # (Auto) 0.69 K/uL (1.2-3.4) Monocytes # (Auto) 0.45 K/uL (0.11-0.59) Eosinophils # (Auto) 0.08 K/uL (0-0.5) Basophils # (Auto) 0.01 K/uL (0-0.2) Immature Granulocyte # (Auto) 0.04 K/uL (0.00-0.02) Prothrombin Time 9.9 SECONDS (9.0-12.0) Prothromb Time International Ratio 0.9 (0.9-1.1) Activated Partial Thromboplast Time 26.6 SECONDS (21.0-31.0) Partial Thromboplastin Ratio 1.0 Total Bilirubin 0.7 mg/dl (0.2-1) Alanine Aminotransferase (ALT/SGPT) 22 U/L (12-78) Alkaline Phosphatase 88 U/L (45-117) Creatine Kinase MB 2.2 ng/ml (0.5-3.6) Total Protein 6.5 gm/dl (6.4-8.2) Albumin 2.6 gm/dl (3.4-5.0) Lipase 237 U/L (73-393) Thyroid Stimulating Hormone (TSH) 14.600 uIu/ml (0.300-4.500) Bedside Troponin I < 0.030 ng/ml (0-0.045) Urine Color YELLOW Urine Appearance CLOUDY (CLEAR) Urine pH 7.5 (4.5-7.5) Urine Specific [place] 1.014 (1.000-1.030) Urine Protein NEG (NEG) Urine Glucose (UA) NEG (NEG) Urine Ketones NEG (NEG) Urine Occult Blood TRACE (NEG) Urine Nitrite POS (NEG) Urine Bilirubin NEG (NEG) Urine Urobilinogen NEG (NEG) Urine Leukocyte Esterase LARGE (NEG) Urine WBC (Auto) >30 /hpf (0-5) Urine RBC (Auto) 5-10 /hpf (0-4) Urine Hyaline Casts (Auto) 1-5 /lpf (0-5) Urine Epithelial Cells (Auto) 5-10 /lpf (0-5) Urine Bacteria (Auto) 4+ (NEG) Test 10/14/17 16:57 10/15/17 07:20 10/16/17 06:57 Direct Bilirubin 0.2 mg/dl (0-0.2) Aspartate Amino Transf (AST/SGOT) 10 U/L (15-37) Total Creatine Kinase 30 U/L (26-192) Anion Gap 6.0 mmol/L (3-11) Est Creatinine Clear Calc Drug Dose 54.1 ml/min Estimated GFR () 82.1 Estimated GFR (Non- 70.8 BUN/Creatinine Ratio 23.3 (10-20) Calcium Level 8.3 mg/dl (8.5-10.1) Red Blood Count 3.45 M/uL (4.2-5.4) Mean Corpuscular Volume 98.3 fL (80-100) Mean Corpuscular Hemoglobin 31.9 pg (25-34) Mean Corpuscular Hemoglobin Concent 32.4 g/dl (32-36) RDW Standard Deviation 51.2 fL (36.4-46.3) RDW Coefficient of Variation 14.3 % (11.5-14.5) Mean Platelet Volume 8.8 fL (7.4-10.4) Date/Time Source Procedure Growth Status 10/14/17 21:29 Nasal MRSA DNA Surveillance Screen - Final Specimen Negative for MRSA by DNA Probe Complete 10/14/17 16:14 Urine,Catheterized Urine Culture - Final Citrobacter Freundii Complex Complete Assessment & Plan 82-year-old female presents with right wrist fracture. She reports having a good night except states that she feels some inner L thigh pain in her muscles like a strain. She is tolerating PO and is doing well overall without symptoms. Pain is controlled. Reports having diarrhea overnight but denies abdominal pain. 1. Right wrist fracture-casted by orthopedics with supportive care. No surgery indicated at this time. Follow-up per Orth O. Continue tramadol for pain. 2. Ambulatory dysfunction with a history of frequent falls-PT/OT assessment. 3. MDR Acute cystitis-patient denies any symptoms at this time. CEfepime was stopped as culture revealed resistance, ID consulted and recommends 3 days of ertapenem followed by Macrobid. 4. C. difficile infection-recent diagnosis, continue vancomycin p.o. 4 times daily to complete her 14 day course. Continue Florastor. 5. Hypothyroidism- TSH is 14 on admission which is improved from greater than 30 last week, continue levothyroxine with outpatient follow-up. 6. Dementia-patient is at reported baseline per senior care staff and is alert and appropriate. Continue donepezil. Patient lives at [facility] 7. History of protein calorie malnutrition-continue boost supplementation. Nutrition consult 8. Sacral wound-wound nurse consult, appreciate Recs 9. Anemia-likely secondary to phlebotomy during this hospitalization. Patient did report some trace bright red blood on her tissue paper with wiping yesterday but reports this was a one-time occurrence and she does have a history of hemorrhoids. Will continue to monitor. No acute indication for transfusion at this time. DVT Prophylaxis-Lovenox Full code Disposition-will be hospitalized likely till Tuesday. PT recommends ECF Demetrice Arshad DO [facility] hospitalist Consultants: Orthopedics- Current Inpatient Medications: Current Inpatient Medications Medications (Trade) Dose Ordered Sig/Nora Route Start Time Stop Time Status Last Admin Dose Admin Acetaminophen (Tylenol Tab) 650 mg Q4H PRN PO 10/14/17 18:30 11/13/17 18:29 10/17/17 08:00 650 MG Magnesium Hydroxide (Milk Of Magnesia Susp) 30 ml Q6H PRN PO 10/14/17 18:30 11/13/17 18:29 Ondansetron HCl (Zofran Inj) 4 mg Q6H PRN IV 10/14/17 18:30 11/13/17 18:29 Furosemide (Lasix Tab) 20 mg DAILY PO 10/15/17 09:00 11/14/17 08:59 10/17/17 08:53 20 MG Levothyroxine Sodium (Synthroid Tab) 100 mcg DAILYBB PO 10/15/17 06:00 11/14/17 06:59 10/17/17 05:45 100 MCG Magnesium Oxide (Mag-Ox Tab) 800 mg BID PO 10/14/17 21:00 11/13/17 20:59 10/17/17 08:53 800 MG Risperidone (Risperdal Tab) 0.5 mg DAILY PO 10/15/17 09:00 11/14/17 08:59 10/17/17 08:53 0.5 MG Saccharomyces Boulardii (Florastor Cap) 250 mg BID PO 10/14/17 21:00 11/13/17 20:59 10/17/17 08:53 250 MG Tramadol HCl (Ultram Tab) 50 mg Q6 PRN PO 10/14/17 18:45 11/13/17 18:44 10/15/17 08:08 50 MG Vancomycin HCl (Vancomycin Oral Soln) 125 mg QID PO 10/14/17 21:00 10/17/17 23:00 10/17/17 12:57 125 MG Cholecalciferol (Vitamin D Tab) 2,000 inter.unit DAILY PO 10/15/17 09:00 11/14/17 08:59 10/17/17 08:52 2,000 INTER.UNIT Donepezil HCl (Aricept Tab) 5 mg DAILY PO 10/15/17 09:00 11/14/17 08:59 10/17/17 08:52 5 MG Ferrous Sulfate (Feosol Tab) 325 mg DAILY PO 10/15/17 09:00 11/14/17 08:59 10/17/17 08:52 325 MG Pantoprazole Sodium (Protonix Tab) 40 mg DAILY PO 10/15/17 09:00 11/14/17 08:59 10/17/17 08:53 40 MG Enoxaparin Sodium (Lovenox Inj) 30 mg Q12 SQ 10/14/17 21:00 11/13/17 20:59 10/17/17 08:54 30 MG Enteral Nutritional Formula (Boost) 1 can DAILY PO 10/15/17 09:00 11/14/17 08:59 10/17/17 10:47 1 CAN Raspberry (Raspberry Syrup 5ml Cup) 5 ml QID PO 10/14/17 21:00 10/28/17 20:59 10/17/17 12:57 5 ML Miscellaneous (Iv Fluids Completed) 1 ea PRN PRN N/A 10/14/17 21:30 10/14/18 21:29 Ertapenem 1 gm/ Sodium Chloride 50 ml @ 120 mls/hr Q24H IV 10/17/17 12:00 10/22/17 11:59 10/17/17 12:19 120 MLS/HR
[2017-10-17 23:28] VITALS: BP 101/58; PULSE 70; TEMP 36.6; O2SAT 97
[2017-10-18] MEDS: LEVOTHYROXINE 100 MCG TAB PO SCH (05:36)
[2017-10-18 06:30] LABS: HEMOGLOBIN 10.8 g/dL (12.0-16.0); MEAN CELL VOLUME 98.5 fL (80-100); MEAN CORPUSCULAR HEMOGLOBIN 32.2 pg (25-34); MEAN CORPUSCULAR HGB CONC 32.7 g/dl (32-36); MEAN PLATELET VOLUME 8.9 fL (7.4-10.4); PLATELET COUNT 231 K/uL (130-400); RED CELL DISTRIBUTION WIDTH CV 14.7 % (11.5-14.5); RED CELL DISTRIBUTION WIDTH SD 52.6 fL (36.4-46.3); WHITE BLOOD COUNT 6.88 K/uL (4.8-10.8)
[2017-10-18 07:05] LABS: CREATININE 1.07 mg/dl (0.60-1.20)
[2017-10-18 07:21] VITALS: BP 107/62; PULSE 71; TEMP 36.6; O2SAT 92
[2017-10-18] MEDS: FERROUS SULFATE 325 MG TAB PO SCH (08:22)
[2017-10-18] MEDS: SACCHAROMYCES BOUL (FLORASTOR) 250 MG CAP PO SCH ×2 (08:22→21:07)
[2017-10-18] MEDS: CHOLECALCIFEROL 1000 INTER.UNIT TAB PO SCH (08:22)
[2017-10-18] MEDS: DONEPEZIL HCL 5 MG TAB PO SCH (08:22)
[2017-10-18] MEDS: MAGNESIUM OXIDE 400 MG TAB PO SCH ×2 (08:22→21:07)
[2017-10-18] MEDS: RISPERIDONE 0.5 MG TAB PO SCH (08:22)
[2017-10-18] MEDS: FUROSEMIDE 20 MG TAB PO SCH (08:23)
[2017-10-18] MEDS: PANTOprazole SOD 40 MG TAB PO SCH (08:23)
[2017-10-18] MEDS: ENOXAPARIN 30 MG/0.3 ML SYR SQ SCH ×2 (08:24→21:07)
[2017-10-18] MEDS: BOOST VANILLA PO SCH (10:10)
[2017-10-18] MEDS: ACETAMINOPHEN 325 MG TAB PO PRN ×2 (10:11→21:07)
[2017-10-18] MEDS: ERTAPENEM IV 1 GM in SODIUM CHLOR 0.9% AD-VAN 50ML 50 ML IV SCH (12:32)
[2017-10-18 15:16] VITALS: BP 92/47; PULSE 68; TEMP 36.8; O2SAT 96
[2017-10-18 19:03] VITALS: BP 104/67
--- NOTE | 2017-10-18 20:16 | Progress Note ---
Internal Med Progress Note Date of Service: Oct 18, 2017. Provider Documentation: SUBJECTIVE: sitting on chair comfortably still has diarrhea complaints of back pain afebrile no nausea no sob or chest pain OBJECTIVE: Vital Signs-as noted below Exam: General-alert and oriented. Not in distress ENT-hard of hearing. Neck-No neck masses Lungs-CTA b/l no wheezing or crackles Heart-S1 and S2 heard regular rate and rhythm no murmurs Abdomen-soft Bowels sounds present non tender no distension Extremities-no edema no erythema skin erythematous rash seen in lower back stage 1 decubitus ulcer? Neuro-alert and oriented moves extremities Lab data as noted below. ASSESSMENT & PLAN: 82-year-old female presents with right wrist fracture. Hx of recent c diff. Found to Have MDR UTI. 1. Right wrist fracture-casted by orthopedics with supportive care. Follow- up per Ortho. tramadol for pain. 2. Ambulatory dysfunction with a history of frequent falls-PT/OT assessment.Plan for placement. 3. MDR Acute cystitis-asymptomatic currently. Initially was on cefepime was stopped as culture revealed resistance, ID recommends 3 days of ertapenem#2 followed by Macrobid. 4. C. difficile infection-recent diagnosis, continue vancomycin p.o. 4 times daily to complete her 14 day course. On Florastor.Diarrhea improving as per patinet but still has it. Will add Colestid. 5. Hypothyroidism- TSH is 14 on admission improved from greater than 30 last week,continue current levothyroxine needs f/u. . 6. Dementia-patient is at reported baseline per long-term staff and is alert and appropriate. Continue donepezil. Patient lives at [facility] 7. History of protein calorie malnutrition-continue boost supplementation. Nutrition consult 8. Sacral wound-wound nurse consult, appreciate Recs 9. Anemia-no signs of active bleeding. will monitor DVT Prophylaxis-Lovenox. Full code Disposition- possible d/c in 1-2 days social service for d/c planning Vital Signs: Date Time Temp Pulse Resp B/P (MAP) Pulse Ox O2 Delivery O2 Flow Rate FiO2 10/18/17 19:03 104/67 (79) 10/18/17 15:55 Room Air 10/18/17 15:16 36.8 68 16 92/47 (62) 96 Room Air 10/18/17 07:45 Room Air 10/18/17 07:21 36.6 71 16 107/62 (77) 92 Room Air 10/17/17 23:45 Room Air 10/17/17 23:28 36.6 70 14 101/58 (72) 97 Room Air Lab Results: Results Past 24 Hours Test 10/18/17 06:10 Range/Units White Blood Count 6.88 4.8-10.8 K/uL Red Blood Count 3.35 4.2-5.4 M/uL Hemoglobin 10.8 12.0-16.0 g/dL Hematocrit 33.0 37-47 % Mean Corpuscular Volume 98.5 80-100 fL Mean Corpuscular Hemoglobin 32.2 25-34 pg Mean Corpuscular Hemoglobin Concent 32.7 32-36 g/dl RDW Standard Deviation 52.6 36.4-46.3 fL RDW Coefficient of Variation 14.7 11.5-14.5 % Platelet Count 231 130-400 K/uL Mean Platelet Volume 8.9 7.4-10.4 fL Creatinine 1.07 0.60-1.20 mg/dl Est Creatinine Clear Calc Drug Dose 39.4 ml/min Estimated GFR () 56.0 Estimated GFR (Non- 48.3
[2017-10-18 23:11] VITALS: BP 102/61; PULSE 67; TEMP 36.3; O2SAT 95
[2017-10-19] MEDS: LEVOTHYROXINE 100 MCG TAB PO SCH (05:51)
[2017-10-19 08:00] VITALS: BP 122/74; PULSE 61; TEMP 36.4; O2SAT 94
[2017-10-19] MEDS: RISPERIDONE 0.5 MG TAB PO SCH (09:08)
[2017-10-19] MEDS: BOOST VANILLA PO SCH (09:08)
[2017-10-19] MEDS: MAGNESIUM OXIDE 400 MG TAB PO SCH (09:08)
[2017-10-19] MEDS: FERROUS SULFATE 325 MG TAB PO SCH (09:09)
[2017-10-19] MEDS: FUROSEMIDE 20 MG TAB PO SCH (09:09)
[2017-10-19] MEDS: DONEPEZIL HCL 5 MG TAB PO SCH (09:09)
[2017-10-19] MEDS: PANTOprazole SOD 40 MG TAB PO SCH (09:09)
[2017-10-19] MEDS: CHOLECALCIFEROL 1000 INTER.UNIT TAB PO SCH (09:09)
[2017-10-19] MEDS: SACCHAROMYCES BOUL (FLORASTOR) 250 MG CAP PO SCH (09:10)
[2017-10-19] MEDS: ENOXAPARIN 30 MG/0.3 ML SYR SQ SCH (09:10)
[2017-10-19 09:19] LABS: BASO % 0.2 %; BASO ABS # 0.01 K/uL (0-0.2); EOS % 2.1 %; EOS ABS # 0.12 K/uL (0-0.5); HEMATOCRIT 35.4 % (37-47); HEMOGLOBIN 11.7 g/dL (12.0-16.0); IG# 0.08 K/uL (0.00-0.02); LYMPH % 15.7 %; MEAN CELL VOLUME 98.9 fL (80-100); MEAN CORPUSCULAR HEMOGLOBIN 32.7 pg (25-34); MEAN CORPUSCULAR HGB CONC 33.1 g/dl (32-36); MEAN PLATELET VOLUME 8.9 fL (7.4-10.4); MONO ABS # 0.46 K/uL (0.11-0.59); NEUT % 72.6 %; NEUT ABS # 4.16 K/uL (1.4-6.5); PLATELET COUNT 277 K/uL (130-400); RED CELL DISTRIBUTION WIDTH CV 14.3 % (11.5-14.5); RED CELL DISTRIBUTION WIDTH SD 51.4 fL (36.4-46.3); WHITE BLOOD COUNT 5.73 K/uL (4.8-10.8)
[2017-10-19 09:34] LABS: CALCIUM 8.6 mg/dl (8.5-10.1); CREATININE 0.88 mg/dl (0.60-1.20); POTASSIUM 4.3 mmol/L (3.5-5.1)
--- NOTE | 2017-10-19 11:30 | Progress Note ---
Internal Med Progress Note Date of Service: Oct 19, 2017. Provider Documentation: SUBJECTIVE: sitting on chair comfortably still has diarrhea but getting better has some back pain afebrile no nausea hemodynamically stable OBJECTIVE: Vital Signs-as noted below Exam: General-alert and oriented. Not in distress ENT-hard of hearing. Neck-No neck masses Lungs-CTA b/l no wheezing or crackles Heart-S1 and S2 heard regular rate and rhythm no murmurs Abdomen-soft Bowels sounds present non tender no distension Extremities-no edema no erythema skin erythematous rash seen in lower back stage 1 decubitus ulcer? Neuro-alert and oriented moves extremities Lab data as noted below. ASSESSMENT & PLAN: 82-year-old female presents with right wrist fracture. Hx of recent c diff. Found to Have MDR UTI. 1. Right wrist fracture-casted by orthopedics with supportive care. Follow- up per Ortho. tramadol for pain.stable 2. Ambulatory dysfunction with a history of frequent falls-PT/OT assessment.Plan for placement today 3. MDR Acute cystitis-asymptomatic currently. Initially was on cefepime was stopped as culture revealed resistance, ID recommends 3 days of ertapenem#2 followed by Macrobid. to d/c on Macrobid after today Invanz dose 4. C. difficile infection-recent diagnosis, continue vancomycin p.o. 4 times daily to completed her 14 day course. On Florastor.Diarrhea improving as per patinet but still has it. Will add Colestid.will give ne more week of po vanco as patient receiving abx for uti 5. Hypothyroidism- TSH is 14 on admission improved from greater than 30 last week,continue current levothyroxine needs f/u. . 6. Dementia-patient is at reported baseline per group home staff and is alert and appropriate. Continue donepezil. Patient lives at [facility] 7. History of protein calorie malnutrition-continue boost supplementation. Nutrition consult 8. Sacral wound-wound nurse consult, appreciate Recs 9. Anemia-no signs of active bleeding. will monitor hb 11.7 today Discharging to SNF Vital Signs: Date Time Temp Pulse Resp B/P (MAP) Pulse Ox O2 Delivery O2 Flow Rate FiO2 10/19/17 08:10 Room Air 10/19/17 08:00 36.4 61 16 122/74 (90) 94 Room Air 4/10/18 23:30 Room Air 10/18/17 23:11 36.3 67 14 102/61 (75) 95 Room Air 10/18/17 19:03 104/67 (79) 10/18/17 15:55 Room Air 10/18/17 15:16 36.8 68 16 92/47 (62) 96 Room Air Lab Results: Results Past 24 Hours Test 10/19/17 08:50 Range/Units White Blood Count 5.73 4.8-10.8 K/uL Red Blood Count 3.58 4.2-5.4 M/uL Hemoglobin 11.7 12.0-16.0 g/dL Hematocrit 35.4 37-47 % Mean Corpuscular Volume 98.9 80-100 fL Mean Corpuscular Hemoglobin 32.7 25-34 pg Mean Corpuscular Hemoglobin Concent 33.1 32-36 g/dl Platelet Count 277 130-400 K/uL Mean Platelet Volume 8.9 7.4-10.4 fL Neutrophils (%) (Auto) 72.6 % Lymphocytes (%) (Auto) 15.7 % Monocytes (%) (Auto) 8.0 % Eosinophils (%) (Auto) 2.1 % Basophils (%) (Auto) 0.2 % Neutrophils # (Auto) 4.16 1.4-6.5 K/uL Lymphocytes # (Auto) 0.90 1.2-3.4 K/uL Monocytes # (Auto) 0.46 0.11-0.59 K/uL Eosinophils # (Auto) 0.12 0-0.5 K/uL Basophils # (Auto) 0.01 0-0.2 K/uL RDW Standard Deviation 51.4 36.4-46.3 fL RDW Coefficient of Variation 14.3 11.5-14.5 % Immature Granulocyte % (Auto) 1.4 % Immature Granulocyte # (Auto) 0.08 0.00-0.02 K/uL Sodium Level 137 136-145 mmol/L Potassium Level 4.3 3.5-5.1 mmol/L Chloride Level 104 98-107 mmol/L Carbon Dioxide Level 27 21-32 mmol/L Anion Gap 6.0 3-11 mmol/L Blood Urea Nitrogen 31 7-18 mg/dl Creatinine 0.88 0.60-1.20 mg/dl Est Creatinine Clear Calc Drug Dose 47.9 ml/min Estimated GFR () 70.9 Estimated GFR (Non- 61.2 BUN/Creatinine Ratio 34.9 10-20 Random Glucose 88 70-99 mg/dl Calcium Level 8.6 8.5-10.1 mg/dl
[2017-10-19] MEDS ORDERED: SACC250C PO (11:32)
[2017-10-19] MEDS ORDERED: VANC5CAP PO (11:32)
[2017-10-19] MEDS ORDERED: NITR1CAP16 PO (11:32)
[2017-10-19] MEDS ORDERED: Boost PO (11:32)
--- NOTE | 2017-10-19 11:34 | Discharge Instructions ---
Discharge Instructions Date of Service Oct 19, 2017. Admission Reason for Admission: Fracture Of Radius, Distal, Right, Closed, Discharge Discharge Diagnosis / Problem: Distal right fracture of radius Discharge Goals Goal(s): Decrease discomfort, Improve function Activity Recommendations Activity Level: Up Ad Viky Therapies: Physical Therapy, Occupational Therapy . Additional Information Patient informed of condition: Yes Advance Directives: No DNR: No Level of Care: Skilled Communicable Disease: No Prognosis: Stable Sheppard Catheter: No Current Hospital Diet Patient's current hospital diet: Regular Diet Discharge Diet Recommended Diet: Regular Diet Pending Studies Studies pending at discharge: no Physician Orders On Transfer Special Precautions: FALL AND ASPIRATION PRECAUTIONS Vital Signs: EVERY 8HRS Medical Emergencies . Who to Call and When: Medical Emergencies: If at any time you feel your situation is an emergency, please call 911 immediately. . Non-Emergent Contact Non-Emergency issues call your: Primary Care Provider . . "Provider Documentation" section prepared by Gigi Hicks. . Core Measure Problem Core Measures: None
--- NOTE | 2017-10-19 11:40 | Discharge Summary ---
Discharge Summary Date of Service Oct 19, 2017. Discharge Summary Admission Date: Oct 15, 2017 at 12:50 Discharge Date: Oct 19, 2017 Discharge Disposition: senior living facility Principal Diagnosis: RIGHT WRIST FRACTURE AMBULATORY DYSFUNCTION MDR UTI Secondary Diagnoses/Problems: (1) C. difficile diarrhea Status: Chronic (2) Dementia Status: Chronic (3) GERD (gastroesophageal reflux disease) Status: Chronic (4) Hypothyroidism Status: Chronic (5) Recurrent UTI Status: Chronic Procedures: RT WRIST XRAY: 1. Acute minimally displaced distal right radial fracture with intra-articular extension. 2. 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 CT HEAD: 1. No significant change compared to the prior study. No acute intracranial abnormality. CXR:No acute cardiopulmonary findings. RT KNEE XRAY: Postsurgical change. No acute fractures. RT HIP XRAY: No acute fractures or dislocations identified. RT WRIST XRAY: Fiberglas casting of the distal radial metaphysis fracture. Consultations: Orthopedics- ID- Medication Reconciliation New Medications: Nitrofurantoin Monohyd Macro (Macrobid) 100 Mg Cap 100 MG PO BID for 5 Days, #10 CAP [Boost] () 1 CAN LIQD 1 CAN PO DAILY for 30 Days, 1 Refill Continued Medications: Cholecalciferol (Vitamin D) 2,000 Unit Tab 2000 UNITS PO DAILY Donepezil Hydrochloride (Donepezil Hcl) 5 Mg Tab 5 MG PO DAILY Ferrous Sulfate (Ferrous Sulfate) 325 Mg Tab 325 MG PO DAILY Furosemide (Furosemide) 20 Mg Tab 20 MG PO DAILY Levothyroxine Sodium (Synthroid) 100 Mcg Tab 1 TAB PO DAILY for 30 Days, #30 TAB 5 Refills Magnesium Oxide (Mag-Ox) 400 Mg Tab 800 MG PO BID, TAB Omeprazole (Prilosec) 20 Mg Capcr 20 MG PO DAILY, CAP Risperidone (Risperdal) 0.5 Mg Tab 0.5 MG PO DAILY, TAB Saccharomyces Boulardii (Florastor) 250 Mg Cap 250 MG PO BID for 15 Days (This prescription has been renewed) Tramadol (Ultram) 50 Mg Tab 50 MG PO Q6 PRN for Pain Vancomycin Hcl (Vancomycin) 125 Mg Cap 125 MG PO QID for 10 Days, #40 TABS (This prescription has been renewed) Discontinued Medications: Ciprofloxacin Hcl (Cipro) 500 Mg Tab 500 MG PO BID for 10 Days, #20 TAB Admission Information HPI (per Admitting provider): Pt is 82 y/o F with PMH Dementia, hypothyroidism, GERD, hx colon CA presented to ER from [facility] with complaint of falls. No family at bedside upon my exam. Patient poor historian. Patient had hospital admission 10/04/17-10/07/17 for altered mental status, UTI, C. difficile. Discharged on Cipro and vancomycin. Patient states he has been sliding out of bed and this is a couple of times over the last couple of days. Patient denies hitting head, headache, dizziness, syncope. Patient complaining of discomfort to right wrist. Denies any paresthesias, elbow pain or shoulder pain. States having some increased difficulty moving her right leg she thinks she noticed that today. Patient states had some diarrhea this morning. History intermittent melena, patient on iron. Patient does not think she has any dysuria. Reports chronic lower extremity edema. Denies fever/chills, diaphoresis, N/V/D/C, PIÑA, vision changes, neck pain, CP, SOB, orthopnea, palpitations, cough, sore throat, choking, otalgia, rhinorrhea, abdominal pain. Physical Exam (per Admitting): General Appearance: no apparent distress, + thin Head: normocephalic, atraumatic Eyes: normal inspection, PERRL, sclerae normal ENT: hearing grossly normal, pharynx normal, + pertinent finding (Mucous membranes moist) Neck: supple, trachea midline Respiratory/Chest: chest non-tender, lungs clear, normal breath sounds, no respiratory distress Cardiovascular: regular rate, rhythm, normal peripheral pulses Abdomen/GI: normal bowel sounds, non tender, soft Back: no CVA tenderness Extremities/Musculoskelatal: + pedal edema (1+ bilaterally), + pertinent finding (Right wrist with edema, positive tenderness to palpation greater over distal radius, limited range of motion secondary to tenderness, distal pulses palpable, brisk cap refill. Right hip and right knee with limited active range of motion, passive range of motion of right hip and right knee causes discomfort , distal pulses intact, brisk cap refill. Remaining extremities with range of motion intact and nontender.) Neurologic/Psych: alert, + pertinent finding (Oriented to person, oriented to month, knows Easter was 5 days ago.) Skin: warm/dry, + pertinent finding (sacral wound) Hospital Course 82-year-old female presents with right wrist fracture. Hx of recent c diff. Found to Have MDR UTI. 1. Right wrist fracture-casted by orthopedics with supportive care. Follow- up per Ortho. tramadol for pain.stable 2. Ambulatory dysfunction with a history of frequent falls-PT/OT assessment.Plan for placement today 3. MDR Acute cystitis-asymptomatic currently. Initially was on cefepime was stopped as culture revealed resistance, ID recommends 3 days of ertapenem#2 followed by Macrobid. to d/c on Macrobid after today Invanz dose 4. C. difficile infection-recent diagnosis, continue vancomycin p.o. 4 times daily to completed her 14 day course. On Florastor.Diarrhea improving as per patient but still has it. Will give one more course of po vanco as patient receiving abx for uti and still has diarrhea. 5. Hypothyroidism- TSH is 14 on admission improved from greater than 30 last week,continue current levothyroxine needs f/u. . 6. Dementia-patient is at reported baseline per [facility] staff and is alert and appropriate. Continue donepezil. Patient lives at [facility] 7. History of protein calorie malnutrition-continue boost supplementation. Nutrition consult 8. Sacral wound-wound nurse consult, appreciate Recs 9. Anemia-no signs of active bleeding. will monitor hb 11.7 today Discharging to SNF Total time spent on discharge = 40MINUTES This includes examination of the patient, discharge planning, medication reconciliation, and communication with other providers. Discharge Instructions Please take this sheet to every appointment for the next month Discharge Instructions Date of Service Oct 19, 2017. Admission Reason for Admission: Fracture Of Radius, Distal, Right, Closed, Discharge Discharge Diagnosis / Problem: Distal right fracture of radius Discharge Goals Goal(s): Decrease discomfort, Improve function Activity Recommendations Activity Level: Up Ad Viky Therapies: Physical Therapy, Occupational Therapy . Additional Information Patient informed of condition: Yes Advance Directives: No DNR: No Level of Care: Skilled Communicable Disease: No Prognosis: Stable Sheppard Catheter: No Current Hospital Diet Patient's current hospital diet: Regular Diet Discharge Diet Recommended Diet: Regular Diet Pending Studies Studies pending at discharge: no Physician Orders On Transfer Special Precautions: FALL AND ASPIRATION PRECAUTIONS Vital Signs: EVERY 8HRS Medical Emergencies . Who to Call and When: Medical Emergencies: If at any time you feel your situation is an emergency, please call 911 immediately. . Non-Emergent Contact Non-Emergency issues call your: Primary Care Provider . . "Provider Documentation" section prepared by Gigi Hicks. . Core Measure Problem Core Measures: None
[2017-10-19] MEDS: ERTAPENEM IV 1 GM in SODIUM CHLOR 0.9% AD-VAN 50ML 50 ML IV SCH (11:51)
[2017-10-19 12:00] VITALS: BP 93/60; PULSE 78; TEMP 36.4; O2SAT 95
[2017-10-19] MEDS: ACETAMINOPHEN 325 MG TAB PO PRN (12:38)
[2017-10-19] MEDS ORDERED: RASPBERRY SYRUP 5 ML UDP PO SCH (13:00)
[2017-10-19] MEDS ORDERED: VANCOMYCIN HCL 125 MG/2.5ML SOLN PO SCH (13:00)
[2017-10-19 13:07] VITALS: BP 93/60; PULSE 78; TEMP 36.4; O2SAT 95
== END 2017-10-19 13:45 | DRG 562 ==
LOC: EDBD 14:04 → C.EDB 14:05 → UNDOADMOB 18:14 → C.MSN 18:14 → EDBEDREQSVC 18:25 → ENRESERV 18:39 → OBSVTOIN 10-15 12:50
PROVIDERS: ADMIT Family Medicine; ATTEND Internal Medicine
PROC: 2W3DX2Z Immobilization of Left Lower Arm using Cast (ICD-10-PCS; principal; 2017-10-15)
DX: S52.571A Other intraarticular fracture of lower end of right radius, initial encounter for closed fracture (principal); G93.41 Metabolic encephalopathy; N30.00 Acute cystitis without hematuria; E46 Unspecified protein-calorie malnutrition; A04.72 Enterocolitis due to Clostridium difficile, not specified as recurrent; K21.9 Gastro-esophageal reflux disease without esophagitis; Z85.038 Personal history of other malignant neoplasm of large intestine; E03.9 Hypothyroidism, unspecified; F03.90 Unspecified dementia, unspecified severity, without behavioral disturbance, psychotic disturbance, mood disturbance, and anxiety; Z87.440 Personal history of urinary (tract) infections; D64.9 Anemia, unspecified; Z96.642 Presence of left artificial hip joint; Z83.3 Family history of diabetes mellitus; R33.9 Retention of urine, unspecified; S31.000A Unspecified open wound of lower back and pelvis without penetration into retroperitoneum, initial encounter; W06.XXXA Fall from bed, initial encounter; Y92.89 Other specified places as the place of occurrence of the external cause; Z16.35 Resistance to multiple antimicrobial drugs